=== PATIENT | female | born 1990 | race African-American/Black ===

== ENCOUNTER 2016-10-30 13:20 | Emergency (ER) | payer OTHER, MEDICAID ==
[2016-10-30 13:26] VITALS: BP 131/62
[2016-10-30] MEDS ORDERED: ACETAMINOPHEN 325 MG TABLET PO ONE (13:35)
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
[2016-10-30] MEDS ORDERED: OXYCODONE-ACETAMINOPHEN 5-325 MG TABLET PO ONE (15:19)
== END 2016-10-30 15:30 | disposition home or self-care (01) ==
LOC: ER 13:20
DX: M25.572 Pain in left ankle and joints of left foot (principal); R03.0 Elevated blood-pressure reading, without diagnosis of hypertension; M54.2 Cervicalgia; M54.5 Low back pain; V89.2XXA Person injured in unspecified motor-vehicle accident, traffic, initial encounter
CPT/HCPCS: 72040; 72110; 99283

== ENCOUNTER 2016-12-02 20:11 | Emergency (ER) | payer MEDICAID, OTHER ==
[2016-12-02 20:27] VITALS: BP 143/74
--- NOTE | 2016-12-02 20:37 | ER Document Report ---
ED Medical Screen (RME) - General Chief Complaint: Chest Pain Stated Complaint: CHEST PAIN Notes: This 25-year-old female patient comes emergency room complaining of left-sided chest pain with shortness of breath for 3 days. It hurts to breathe, hurts to turn and twist and lift or use the left arm. There is no history of ear strain. She has 2 children with her, a 7-6-qxed-old, and a 4-month-old. Brief exam shows the left anterior chest wall and pectoralis muscles are quite tender to palpate reproducing the chief complaint. I have greeted and performed a rapid initial assessment of this patient. A comprehensive ED assessment and evaluation of the patient, analysis of test results and completion of the medical decision making process will be conducted by additional ED providers. TRAVEL OUTSIDE OF THE [place] IN LAST 30 DAYS: No - Related Data Allergies/Adverse Reactions: peanut Allergy (Severe, Verified 10/30/16 13:30) Anaphylaxis Past Medical History Pulmonary Medical History: Reports: Hx Asthma Neurological Medical History: Reports: Hx Migraine Renal/ Medical History: Denies: Hx Peritoneal Dialysis - Immunizations Hx Diphtheria, Pertussis, Tetanus Vaccination: Yes Physical Exam - Vital signs Vitals: Temp Pulse Resp BP Pulse Ox 98.9 F 101 H 22 H 143/74 H 99 12/02/16 20:23 12/02/16 20:23 12/02/16 20:23 12/02/16 20:23 12/02/16 20:23 Course - Vital Signs Vital signs: Temp Pulse Resp BP Pulse Ox 98.9 F 101 H 22 H 143/74 H 99 12/02/16 20:23 12/02/16 20:23 12/02/16 20:23 12/02/16 20:23 12/02/16 20:23
--- NOTE | 2016-12-03 07:36 | EKG REPORT ---
SEVERITY:- NORMAL ECG - SINUS RHYTHM : Confirmed by: Chandrakant Pham MD 03-Dec-2016 07:35:15
== END 2016-12-03 05:49 | disposition left against medical advice (07) ==
LOC: ER 20:11
DX: Z53.9 Procedure and treatment not carried out, unspecified reason (principal); R07.9 Chest pain, unspecified; R06.02 Shortness of breath
CPT/HCPCS: 93005; 93010; 99281

== ENCOUNTER 2018-01-11 09:57 | Emergency (ER) | payer MEDICAID, OTHER ==
[2018-01-11] MEDS ORDERED: PENICILLIN V POTASSIUM 500 MG TABLET PO ONE (10:52)
[2018-01-11] MEDS ORDERED: LIDOCAINE 2% VISCOUS SOLN 20 ML UDCUP PO ONE (10:52)
--- NOTE | 2018-01-11 10:59 | ER Document Report ---
ED Oral Problem - General Chief Complaint: Jaw Pain Stated Complaint: MOUTH PAIN Time Seen by Provider: 01/11/18 10:26 Mode of Arrival: Ambulatory Information source: Patient Notes: 27-year-old female presents to ED for left-sided dental pain left lower wisdom tooth #17 with redness around the tooth. She states his been hurting for about a month but she has not been able to get into the doctor. She states she was been able to control it with her [id number] medicines but now it is not helping anymore. TRAVEL OUTSIDE OF THE [place] IN LAST 30 DAYS: No - HPI Patient complains to provider of: Toothache Onset: Other Onset: Gradual - Month Quality of pain: Achy, Sharp, Throbbing Severity: Severe Pain Level: 5 Associated symptoms: Toothache Worsened by: Cold Similar symptoms previously: Yes Recently seen / treated by doctor/dentist: No - Related Data Allergies/Adverse Reactions: peanut Allergy (Severe, Verified 10/30/16 13:30) Anaphylaxis Past Medical History - General Information source: Patient - Social History Smoking Status: Former Smoker Cigarette use (# per day): No Chew tobacco use (# tins/day): No Smoking Education Provided: No Frequency of alcohol use: Social Drug Abuse: None Occupation: customer service professional Lives with: Alone - Along with her children Family History: None Patient has suicidal ideation: No Patient has homicidal ideation: No - Past Medical History Cardiac Medical History: Reports: None Pulmonary Medical History: Reports: Hx Asthma EENT Medical History: Reports: None Neurological Medical History: Reports: Hx Migraine Renal/ Medical History: Reports: None Malignancy Medical History: Reports: None GI Medical History: Reports: None Musculoskeltal Medical History: Reports None Skin Medical History: Reports None Psychiatric Medical History: Reports: None Traumatic Medical History: Reports: None Infectious Medical History: Reports: None Surgical Hx: Negative Past Surgical History: Reports: None - Immunizations Immunizations up to date: Yes Hx Diphtheria, Pertussis, Tetanus Vaccination: Yes Review of Systems - Review of Systems Constitutional: No symptoms reported EENT: No symptoms reported, Dental problem Cardiovascular: No symptoms reported Respiratory: No symptoms reported Gastrointestinal: No symptoms reported Genitourinary: No symptoms reported Female Genitourinary: No symptoms reported Musculoskeletal: No symptoms reported Skin: No symptoms reported Hematologic/Lymphatic: No symptoms reported Neurological/Psychological: No symptoms reported -: Yes All other systems reviewed and negative Physical Exam - Vital signs Vitals: Temp Pulse Resp BP Pulse Ox 98.4 F 56 L 18 126/79 H 100 01/11/18 10:04 01/11/18 10:04 01/11/18 10:04 01/11/18 10:04 01/11/18 10:04 Interpretation: Normal - General General appearance: Appears well, Alert - HEENT Head: Normocephalic, Atraumatic Eyes: Normal Pupils: PERRL Ears: Normal External canal: Normal Tympanic membrane: Normal Nasal: Normal Mouth/Lips: Caries Mucous membranes: Normal Teeth diagram: 1 - Large cavity with gingivitis around the tooth mild swelling no actual abscess noted Pharynx: Normal Neck: Normal - Respiratory Respiratory status: No respiratory distress Chest status: Nontender Breath sounds: Normal Chest palpation: Normal - Cardiovascular Rhythm: Regular Heart sounds: Normal auscultation Murmur: No - Abdominal Inspection: Normal Distension: No distension Bowel sounds: Normal Tenderness: Nontender Organomegaly: No organomegaly - Back Back: Normal, Nontender - Extremities General upper extremity: Normal inspection, Nontender, Normal color, Normal ROM , Normal temperature General lower extremity: Normal inspection, Nontender, Normal color, Normal ROM , Normal temperature, Normal weight bearing. No: Norberto's sign - Neurological Neuro grossly intact: Yes Cognition: Normal Orientation: AAOx4 [place] Coma Scale Eye Opening: Spontaneous [place] Coma Scale Verbal: Oriented [place] Coma Scale Motor: Obeys Commands [place] Coma Scale Total: 15 Speech: Normal Motor strength normal: LUE, RUE, LLE, RLE Sensory: Normal - Psychological Associated symptoms: Normal affect, Normal mood - Skin Skin Temperature: Warm Skin Moisture: Dry Skin Color: Normal Course - Re-evaluation Re-evalutation: 01/11/18 10:56 After performing a Medical Screening Examination, I estimate there is LOW risk for a DEEP SPACE INFECTION (e.g., MURIEL'S ANGINA OR RETROPHARYNGEAL ABSCESS), MENINGITIS, INTRACRANIAL HEMORRHAGE, or AIRWAY COMPROMISE, thus I consider the discharge disposition reasonable. Also, there is no evidence or peritonitis, sepsis, or toxicity. I have reevaluated this patient multiple times and no significant life threatening changes are noted. The patient and I have discussed the diagnosis and risks, and we agree with discharging home with close follow-up with the understanding that symptoms and presentations can change. We also discussed returning to the Emergency Department immediately if new or worsening symptoms occur. We have discussed the symptoms which are most concerning (e.g., changing or worsening pain, trouble swallowing or breathing, neck stiffness or fever) that necessitate immediate return. - Vital Signs Vital signs: Temp Pulse Resp BP Pulse Ox 98.9 F 78 18 130/78 H 100 01/11/18 11:07 01/11/18 11:07 01/11/18 11:07 01/11/18 11:07 01/11/18 11:07 Discharge - Discharge Clinical Impression: Pain due to dental caries HTN (hypertension) Qualifiers: Hypertension type: unspecified Qualified Code(s): I10 - Essential (primary) hypertension Condition: Stable Disposition: HOME, SELF-CARE Additional Instructions: TOOTHACHE: Your pain is due to dental decay. The tooth must be repaired in order for you to feel better. You will, therefore, be referred to a dentist. We do not have dentists on the staff at [facility]. Severe swelling or drainage around a tooth usually means a dental abscess. This also requires evaluation and treatment by the dentist, but antibiotics may be prescribed while awaiting dental treatment. You should be rechecked immediately if you develop major swelling of the face, increasing pain, a lump in the jaw or gums, headache, difficulty swallowing, or fever. PENICILLIN V K: You have been given a prescription for Penicillin VK. Your physician has determined that this is the best antibiotic for your condition. Pen VK can be taken with meals, however more of the antibiotic gets into the bloodstream if it's taken on an empty stomach. Penicillin usually has no side effects. However, allergy to penicillins is common. If you have had an allergic reaction to any drug of the penicillin family, you should never take any other penicillin. Notify your doctor at once if you develop hives, itching, swelling, faintness, or shortness of breath. Salt and soda solution 1 quart of water 1 tablespoon of salt 1 teaspoon of baking soda Mixed 3 ingredients together and boil for 1 minute Placed in a covered quart jar Use 1/2 ounce of cold solution to gargle 3 times a day The viscous lidocaine you have been given in the syringe can be used every 1-2 hours. Put a small amount on your finger and rub into the tooth and the surrounding gums every 1-2 hours for pain. Be aware that this can numb your tongue. FOLLOW-UP CARE: You have been referred for follow-up care to the dentists listed below. Call the dentists office for an appointment as you were instructed or within the next two days. If you experience worsening or a significant change in your symptoms, notify the physician immediately or return to the Emergency Department at any time for re-evaluation. [facility] [address] [place], [place] [facility] [address] [place] [address] [facility] [address] [facility] [address] [facility] [address] [facility] [address] [email or web address] [address] [place] [address] Thursday- 8:00am to 5:00 pm Will see patients from other [facility]. Charges based on income and family size and accepts Medicare, Medicaid, and Insurances Will pull molars [facility] [id number] Hours of Operation 8:00 am - 4:30 pm weekdays The following dental offices accept Medicaid: [facility] Dr. [address] Dr. Wyatt Dr. Giles Dr. Hardy Darci Tellez [place], and [facility] oral surgery Dr. Henson ([place]) Dr. Redman ([place]) [facility] Drs. Mueller and Ernesto ([place]) Dr. Winters ([place]) [facility] Dr. Noe ([place]) Drs. Hurtado and ([place]) Medicaid Care Line Prescriptions: Penicillin V Potassium [Penicillin Vk 500 mg Tablet] 500 mg PO BID #20 tablet Forms: Elevated Blood Pressure, Return to Work Referrals: WHITLEY NORTON MD [Primary Care Provider] - Follow up as needed
[2018-01-11 11:08] VITALS: BP 130/78
== END 2018-01-11 11:05 | disposition home or self-care (01) ==
LOC: ER 09:57
DX: K02.9 Dental caries, unspecified (principal); K08.89 Other specified disorders of teeth and supporting structures; K05.10 Chronic gingivitis, plaque induced; I10 Essential (primary) hypertension; J45.909 Unspecified asthma, uncomplicated; Z87.892 Personal history of anaphylaxis; Z91.010 Allergy to peanuts
CPT/HCPCS: 99282; J3490 ×2

== ENCOUNTER 2018-01-28 12:11 | Emergency (ER) | payer MEDICAID ==
[2018-01-28] MEDS ORDERED: ACETAMINOPHEN 325 MG TABLET PO ONE (12:44)
--- NOTE | 2018-01-28 12:45 | ER Document Report ---
ED Extremity Problem, Lower - General Chief Complaint: Ankle Injury Stated Complaint: RIGHT ANKLE PAIN Time Seen by Provider: 01/28/18 12:37 Mode of Arrival: Wheelchair Information source: Patient Notes: 27-year-old female presented ED for complaint of right ankle pain this started today when she stepped in a hole. When she started to pull her put out is started hurting and that she tried to walk on it and the pain increased. States she took 1600 mg of ibuprofen this morning and it does not help. Regular and unlabored pupils equal and react to light and the patient is able to speak in full sentences. Patient states it does hurt to put weight on this ankle. TRAVEL OUTSIDE OF THE [place] IN LAST 30 DAYS: No - HPI Patient complains to provider of: Injury, Pain Location: Ankle Occurred: This morning Where: Home, Outdoors Onset/Duration: Sudden Quality of pain: Achy, Sharp, Throbbing Severity: Moderate Pain Level: 3 Context: Twisted Recent injury: Possibly Associated symptoms: Painful ambulation Exacerbated by: Hanging down, Movement, Walking Relieved by: Elevation, Ice, Rest - Related Data Allergies/Adverse Reactions: peanut Allergy (Severe, Verified 01/28/18 12:12) Anaphylaxis Past Medical History - General Information source: Patient - Social History Smoking Status: Never Smoker Cigarette use (# per day): No Chew tobacco use (# tins/day): No Smoking Education Provided: No Frequency of alcohol use: Social Drug Abuse: None Occupation: In the [employer] [place] Lives with: Alone - With her children Family History: None Patient has suicidal ideation: No Patient has homicidal ideation: No - Past Medical History Cardiac Medical History: Reports: None Pulmonary Medical History: Reports: Hx Asthma EENT Medical History: Reports: None Neurological Medical History: Reports: Hx Migraine Endocrine Medical History: Reports: None Renal/ Medical History: Reports: None Malignancy Medical History: Reports: None GI Medical History: Reports: None Musculoskeltal Medical History: Reports Hx Musculoskeletal Trauma Skin Medical History: Reports None Psychiatric Medical History: Reports: None Traumatic Medical History: Reports: Hx Fractures - Both ankles Infectious Medical History: Reports: None Surgical Hx: Negative Past Surgical History: Reports: None - Immunizations Immunizations up to date: Yes Hx Diphtheria, Pertussis, Tetanus Vaccination: Yes Review of Systems - Review of Systems Constitutional: No symptoms reported EENT: No symptoms reported Cardiovascular: No symptoms reported Respiratory: No symptoms reported Gastrointestinal: No symptoms reported Genitourinary: No symptoms reported Female Genitourinary: No symptoms reported Musculoskeletal: Other - Right ankle pain with slight swelling Skin: No symptoms reported Hematologic/Lymphatic: No symptoms reported Neurological/Psychological: No symptoms reported -: Yes All other systems reviewed and negative Physical Exam - Vital signs Vitals: Temp Pulse Resp BP Pulse Ox 98.8 F 83 16 132/78 H 99 01/28/18 12:14 01/28/18 12:14 01/28/18 12:14 01/28/18 12:14 01/28/18 12:14 Interpretation: Normal - General General appearance: Appears well, Alert - HEENT Head: Normocephalic, Atraumatic Eyes: Normal Pupils: PERRL - Respiratory Respiratory status: No respiratory distress Chest status: Nontender Breath sounds: Normal Chest palpation: Normal - Cardiovascular Rhythm: Regular Heart sounds: Normal auscultation Murmur: No - Abdominal Inspection: Normal Distension: No distension Bowel sounds: Normal Tenderness: Nontender Organomegaly: No organomegaly - Back Back: Normal, Nontender - Extremities General upper extremity: Normal inspection, Nontender, Normal color, Normal ROM , Normal temperature General lower extremity: Normal color, Normal temperature. No: Norberto's sign Ankle: Tender, Ecchymosis - Minimal, Edema, Limited ROM - Due to pain. No: Abrasion, Deformity - minimal, Instability, Laceration, Positive Delgado's test, Unable to bear weight Foot: Normal, Nontender - Neurological Neuro grossly intact: Yes Cognition: Normal Orientation: AAOx4 Butler Coma Scale Eye Opening: Spontaneous Butler Coma Scale Verbal: Oriented Hany Coma Scale Motor: Obeys Commands Hany Coma Scale Total: 15 Speech: Normal Motor strength normal: LUE, RUE, LLE, RLE Sensory: Normal - Psychological Associated symptoms: Normal affect, Normal mood - Skin Skin Temperature: Warm Skin Moisture: Dry Skin Color: Normal Course - Re-evaluation Re-evalutation: 01/28/18 15:10 X-rays discussed with patient and written report given to patient. Patient was treated with Terrance wrap and stirrup splint and crutches. Patient was instructed to use elevation ice and ibuprofen for the pain. Patient to follow-up with orthopedics. The patient is nontoxic appearing with stable vitals. They are afebrile. Ankle exam shows no deformities with no obvious ligament instability. There is a normal pulse and sensation distally. There is no redness or signs of infection. X-rays show no acute fracture per the radiologist. Patient will be placed in an Terrance wrap for comfort. Crutches will be offered and given if requested. Patient will be instructed to follow-up with not better in 1 week, sooner for increasing pain, fever, redness, numbness , tingling, weakness, any further concerns. Patient will be instructed to rest , ice, elevate their ankle. - Vital Signs Vital signs: Temp Pulse Resp BP Pulse Ox 98.2 F 76 18 126/76 H 100 01/28/18 14:21 01/28/18 14:21 01/28/18 14:21 01/28/18 14:21 01/28/18 14:21 - Diagnostic Test Radiology reviewed: Image reviewed, Reports reviewed Procedures - Immobilization Right Ankle Time completed: 14:20 Immobilizer type: Terrance wrap, Ankle stirrup, Crutches Performed by: PCT Post-Proc Neuro Vasc Exam: Normal Alignment checked and good: Yes Discharge - Discharge Clinical Impression: Right ankle sprain Qualifiers: Encounter type: initial encounter Involved ligament of ankle: unspecified ligament Qualified Code(s): S93.401A - Sprain of unspecified ligament of right ankle, initial encounter Condition: Stable Disposition: HOME, SELF-CARE Instructions: Ankle Exercise Program ([facility]) Additional Instructions: SPRAINED ANKLE: Your sprained ankle results from stretching or tearing of the ligaments which support the ankle. This usually results from twisting the foot inward and under. The ligaments will require time and protection in order to heal properly. Many ankle sprains are quite disabling, and should be taken seriously. The usual treatment for an ankle sprain is cold packs; protection with tape , splints, or wraps; elevation; and staying off the ankle for at least a day. As the ankle improves, you can walk IF it's not painful to bear weight. Sports are best postponed until healing is complete. More serious sprains usually require strengthening exercises after early healing. Your physician has assessed the seriousness of the ligament injury to your ankle. However, the treatment may change, depending on how your ankle progresses. If further exams were recommended, it is important that you follow through. Call the doctor if your foot becomes numb, painful, or severely swollen. TERRANCE WRAP: A compression dressing (terrance wrap) has been placed. This helps hold the area still. It limits swelling and internal bleeding. The wrap should be comfortably snug -- not tight. You should feel a sense of pressure, but not severe pain under the wrap. Unless the physician tells you otherwise, you can adjust the wrap for comfort. If the wrap causes symptoms suggesting it's too tight -- uncomfortable pressure, swelling or discoloration beyond the wrap, numbness, or severe pain - - you must loosen the wrap. If these symptoms don't resolve promptly, return for re-evaluation. ANKLE STIRRUP SPLINT: You are to use an ankle brace called a stirrup splint. This type of brace allows you to place greater stresses on the ankle without risk of re-injury, and is often used for more severe ankle injuries such as avulsion fractures and ligament ruptures. The splint can be worn over a sock or tape. For proper support, wear the splint with a shoe over it. It's important that the splint fit properly. Adjust the heel tension, if needed. If your splint has air bladders, peel back the bottom of each air bladder, then move the Velcro attachment of the heel strap up or down. Air bladder pressure can be adjusted by pulling up the valve at the top, threading the air tube down into the main bladder, then blowing air into the bladder or squeezing it out. The two sides of the stirrup can be moved forward or back on your ankle by changing the attachment of the main straps. If you are unable to use the ankle comfortably in the splint, return for re -evaluation. USE OF CRUTCHES: The doctor has recommended that you not bear weight at this time. You will need to use crutches. Adjust the crutches so the tops come to about two inches under the armpit while you are standing upright. Use your hands -- not your armpits -- to support your weight. To get into a chair, support yourself with one crutch on the injured side. Hold the chair with the other hand, then lower yourself while putting all your weight on the good leg. Going up stairs is `good leg up, step up, then bring up crutches and bad leg.' Down stairs is `bad leg and crutches down, then bring good leg down.' If you develop numbness or swelling in an arm or hand, you are using the crutches incorrectly. Return if you are having any problems with the crutches. ICE & ELEVATION: Apply ice packs frequently against the painful area. Many different schedules are recommended, such as "20 minutes on, 20 minutes off" or "one hour ice, two hours rest." If you need to work, you may need to go longer between ice treatments. You should plan to have the area ice packed AT LEAST one- fourth of the time. The ice should be applied over the wrap, tape, or splint, or over a layer of cloth -- not directly against the skin. Some ice bags have a built-in cloth and can be put directly on the skin. Your injured part should be elevated as much as possible over the next 48 hours. Try to keep the injury above the level of the heart. Avoid use of the injured area. Elevation and rest will decrease the swelling. USE OF [id number] IBUPROFEN: Ibuprofen (Advil, Nuprin, Medipren, Motrin IB) is a medication for fever and pain control. In addition, it has anti- inflammatory effects which may be beneficial, especially in the treatment of injuries. It's best to take ibuprofen with food. Persons with ulcer disease or allergy to aspirin should notify their physician of this before taking ibuprofen. Ibuprofen can be given every four to six hours, for a total of four doses daily. Age Pain or fever dose Antiinflammatory dose 6-8 yr 200 mg (1 tab) 200 mg (1 tab) 9-11 yr 200 mg (1 tab) 200-400 mg (1-2 tab) 11-14 yr 200-400 mg (1-2 tab) 400 mg (2 tab) 15-adult 400 mg (2 tab) 600 mg (3 tab) Exercises for the Foot Muscles Stretching and strengthening of the foot muscles is an important part of recovery from injury, as well as in treatment and prevention of overuse syndromes like plantar fasciitis. TOWEL CURLS: Put your foot on a dry towel. Curl your toes to pick it up, then drop it. As it becomes easier, use a heavier towel. Repeat 20 times, twice daily. QUINTEROS CURLS: Lift and turn your knee, so your foot is against the opposite leg about mid-quinteros. Try to "grab" the entire quinteros bone with your toes, while moving your foot up and down the leg for one minute. Repeat twice daily. TOE LIFTS: Put your opposite foot over your 2nd to 5th toes. Now lift the toes up, pushing the other foot upward. Repeat 10 times, twice daily. Repeat using the large toe. EVERSIONS: Cross the opposite foot over, placing the heel just behind the 4th and 5th toes. Try to lift up the outside of the bottom foot. Hold 10 seconds. Repeat twice daily. FOLLOW-UP CARE: If you have been referred to a physician for follow-up care, call the physician s office for an appointment as you were instructed or within the next two days. If you experience worsening or a significant change in your symptoms, notify the physician immediately or return to the Emergency Department at any time for re-evaluation. Forms: Elevated Blood Pressure, Return to Work Referrals: WHITLEY NORTON MD [Primary Care Provider] - Follow up as needed PRACHI HERRON MD [ACTIVE STAFF] - Follow up as needed
--- NOTE | 2018-01-28 13:41 | RADIOLOGY REPORT (SQ) ---
EXAM DESCRIPTION: ANKLE RIGHT COMPLETE COMPLETED DATE/TIME: 01/28/2018 1:08 pm REASON FOR STUDY: Pain and injury after stepping in a hole COMPARISON: None. NUMBER OF VIEWS: Three views. TECHNIQUE: AP, lateral, and oblique radiographic images acquired of the right ankle. LIMITATIONS: None. FINDINGS: MINERALIZATION: Normal. BONES: No acute fracture or dislocation. No worrisome bone lesions. JOINTS: No effusions. SOFT TISSUES: No soft tissue swelling. No foreign body. OTHER: No other significant finding. IMPRESSION: NEGATIVE STUDY OF THE RIGHT ANKLE. NO RADIOGRAPHIC EVIDENCE OF ACUTE INJURY. TECHNICAL DOCUMENTATION: JOB ID: [id number] [employer]- All Rights Reserved Reading location - IP/workstation name: [email or web address]
[2018-01-28 14:24] VITALS: BP 126/76
== END 2018-01-28 14:24 | disposition home or self-care (01) ==
LOC: ER 12:11
PROC: 2W3QX1Z Immobilization of Right Lower Leg using Splint (ICD-10-PCS; principal; 2018-01-28)
DX: S93.401A Sprain of unspecified ligament of right ankle, initial encounter (principal); M25.571 Pain in right ankle and joints of right foot; W17.2XXA Fall into hole, initial encounter; J45.909 Unspecified asthma, uncomplicated
CPT/HCPCS: 99283; 73610; 29515; L1902; J3490

== ENCOUNTER 2018-03-29 14:29 | Emergency (ER) | payer MEDICAID ==
[2018-03-29] MEDS ORDERED: KETOROLAC TROMETHAMINE 60 MG/2 ML SDV IM ONE (15:15)
[2018-03-29] MEDS ORDERED: CYCLOBENZAPRINE HCL 10 MG TABLET PO ONE (15:15)
--- NOTE | 2018-03-29 15:15 | ER Document Report ---
ED Medical Screen (RME) - General Chief Complaint: Back Pain Stated Complaint: VOMITING Time Seen by Provider: 03/29/18 15:14 Mode of Arrival: Ambulatory Information source: Patient Notes: Patient presents emergency department with complaints of entire back pain after she vomited once this morning. She reports she is not nauseated today. Denies trauma. Denies fever diarrhea. Took Motrin 800 mg at 11:00 this morning. Patient reports there is no way she is . I have greeted and performed a rapid initial assessment of this patient. A comprehensive ED assessment and evaluation of the patient, analysis of test results and completion of the medical decision making process will be conducted by additional ED providers. TRAVEL OUTSIDE OF THE [place] IN LAST 30 DAYS: No - Related Data Allergies/Adverse Reactions: peanut Allergy (Severe, Verified 03/29/18 14:30) Anaphylaxis Past Medical History Pulmonary Medical History: Reports: Hx Asthma Neurological Medical History: Reports: Hx Migraine Renal/ Medical History: Denies: Hx Peritoneal Dialysis Musculoskeltal Medical History: Reports Hx Musculoskeletal Trauma Traumatic Medical History: Reports: Hx Fractures - Both ankles - Immunizations Immunizations up to date: Yes Hx Diphtheria, Pertussis, Tetanus Vaccination: Yes Physical Exam - Vital signs Vitals: Temp Pulse Resp BP Pulse Ox 98.7 F 64 16 134/67 H 100 03/29/18 14:49 03/29/18 14:49 03/29/18 14:49 03/29/18 14:49 03/29/18 14:49 Course - Vital Signs Vital signs: Temp Pulse Resp BP Pulse Ox 98.7 F 64 16 134/67 H 100 03/29/18 14:49 03/29/18 14:49 03/29/18 14:49 03/29/18 14:49 03/29/18 14:49 Doctor's Discharge - Discharge Referrals: WHITLEY NORTON MD [Primary Care Provider] - Follow up as needed
--- NOTE | 2018-03-29 15:29 | ER Document Report ---
HPI - HPI Patient complains to provider of: right upper back st[place] Onset: This morning Quality of pain: Achy Pain Level: 5 Context: 27 yo female c/o right upper back pain after vomiting twice this morning. Worse with movement. No abdominal pain, fever, or diarrhea. Exacerbated by: Movement Relieved by: Denies - ROS ROS below otherwise negative: Yes Systems Reviewed and Negative: Yes All other systems reviewed and negative - REPRODUCTIVE Reproductive: DENIES: : - DERM Skin Color: Normal Past Medical History - General Information source: Patient - Social History Smoking Status: Never Smoker Chew tobacco use (# tins/day): No Frequency of alcohol use: None Drug Abuse: None Family History: None Patient has suicidal ideation: No Patient has homicidal ideation: No Pulmonary Medical History: Reports: Hx Asthma Neurological Medical History: Reports: Hx Migraine Renal/ Medical History: Denies: Hx Peritoneal Dialysis Musculoskeletal Medical History: Reports Hx Musculoskeletal Trauma Traumatic Medical History: Reports: Hx Fractures - Both ankles - Immunizations Immunizations up to date: Yes Hx Diphtheria, Pertussis, Tetanus Vaccination: Yes Vertical Provider Document - CONSTITUTIONAL Agree With Documented VS: Yes Exam Limitations: No Limitations General Appearance: No Apparent Distress - INFECTION CONTROL TRAVEL OUTSIDE OF THE [place] IN LAST 30 DAYS: No - HEENT HEENT: Normocephalic - NECK Neck: Supple - RESPIRATORY Respiratory: Breath Sounds Normal, No Respiratory Distress Notes: tender right trapezius muscle. - CARDIOVASCULAR Cardiovascular: Regular Rate, Regular Rhythm - BACK Back: Normal Inspection Notes: see above - MUSCULOSKELETAL/EXTREMETIES Musculoskeletal/Extremeties: MAEW, FROM, Tender - see above - NEURO Level of Consciousness: Alert - DERM Integumentary: No Rash Course - Vital Signs Vital signs: Temp Pulse Resp BP Pulse Ox 98.7 F 64 16 134/67 H 100 03/29/18 14:49 03/29/18 14:49 03/29/18 14:49 03/29/18 14:49 03/29/18 14:49 Discharge - Discharge Clinical Impression: Right trapezius muscle strain Condition: Good Disposition: HOME, SELF-CARE Instructions: Acetaminophen, Ibuprofen (General) ([facility]), Muscle Relaxers ([facility]), Muscle Strain ([facility]), Warm Packs ([facility]) Additional Instructions: Warm compress to your back Tylenol up to 4000 mg a day You can also take your Motrin 803 times a day with food Return to the emergency room for any worsening symptoms Prescriptions: Cyclobenzaprine HCl [Flexeril 10 Mg Tablet] 10 mg PO TIDP PRN #20 tablet PRN Reason: Forms: Return to Work Referrals: WHITLEY NORTON MD [Primary Care Provider] - Follow up as needed
[2018-03-29] MEDS ORDERED: ACETAMINOPHEN 325 MG TABLET PO ONE (16:00)
[2018-03-29 16:15] VITALS: BP 120/75
== END 2018-03-29 16:13 | disposition home or self-care (01) ==
LOC: ER 14:29
DX: S46.811A Strain of other muscles, fascia and tendons at shoulder and upper arm level, right arm, initial encounter (principal); M54.6 Pain in thoracic spine; X58.XXXA Exposure to other specified factors, initial encounter
CPT/HCPCS: 99283; 96372; J3490 ×2; J1885

== ENCOUNTER 2018-07-05 22:55 | Emergency (ER) | payer MEDICAID ==
[2018-07-06] MEDS ORDERED: NORMAL SALINE 1000 ML 1,000 ML IV ONE (00:10)
[2018-07-06] MEDS ORDERED: ONDANSETRON HCL INJ/PF 4 MG/2 ML SDV IV ONE (00:10)
--- NOTE | 2018-07-06 00:11 | ER Document Report ---
ED Medical Screen (RME) - General Chief Complaint: Abdominal Pain Stated Complaint: ABDOMINAL PAIN Time Seen by Provider: 07/06/18 00:06 Notes: 27-year-old female, chief complaint of upper and lower abdominal pain, multiple vomiting episodes for the past few days. States she had a stomach virus last week but this resolved. Denies fever. Unsure of . No abdominal surgeries. TRAVEL OUTSIDE OF THE [place] IN LAST 30 DAYS: No - Related Data Allergies/Adverse Reactions: peanut Allergy (Severe, Verified 03/29/18 14:30) Anaphylaxis Past Medical History Pulmonary Medical History: Reports: Hx Asthma Neurological Medical History: Reports: Hx Migraine Renal/ Medical History: Denies: Hx Peritoneal Dialysis Musculoskeltal Medical History: Reports Hx Musculoskeletal Trauma Traumatic Medical History: Reports: Hx Fractures - Both ankles - Immunizations Immunizations up to date: Yes Hx Diphtheria, Pertussis, Tetanus Vaccination: Yes Physical Exam - Vital signs Vitals: Temp Pulse Resp BP Pulse Ox 98.5 F 67 24 H 131/63 H 98 07/05/18 23:01 07/05/18 23:01 07/05/18 23:01 07/05/18 23:01 07/05/18 23:01 - General General appearance: Appears well In distress: None - Abdominal Tenderness: Tender - Generalized upper and lower abdominal tenderness, exam limited by sitting position Course - Vital Signs Vital signs: Temp Pulse Resp BP Pulse Ox 98.5 F 67 24 H 131/63 H 98 07/05/18 23:01 07/05/18 23:01 07/05/18 23:01 07/05/18 23:01 07/05/18 23:01 Doctor's Discharge - Discharge Referrals: WHITLEY NORTON MD [Primary Care Provider] - Follow up as needed
[2018-07-06 01:15] LABS: ABSOLUTE LYMPHOCYTES (AUTO) 1.4 10^3/uL (0.5-4.7); ABSOLUTE MONOCYTES (AUTO) 0.3 10^3/uL (0.1-1.4); ABSOLUTE NEUT (AUTO) 3.3 10^3/uL (1.7-8.2); BASOPHILS % (AUTO) 0.3 % (0-2); EOSINOPHILS % (AUTO) 0.5 % (0-6); HEMATOCRIT 36.9 % (36.0-47.0); HEMOGLOBIN 12.3 g/dL (12.0-15.5); LYMPHOCYTES % (AUTO) 27.2 % (13-45); MEAN CORPUSCULAR HEMOGLOBIN 28.1 pg (27.0-33.4); MEAN CORPUSCULAR HGB CONC 33.3 g/dL (32.0-36.0); MEAN CORPUSCULAR VOLUME 85 fl (80-97); MONOCYTES % (AUTO) 6.6 % (3-13); PLATELET COUNT 409 10^3/uL (150-450); RED BLOOD COUNT 4.37 10^6/uL (3.72-5.28); RED CELL DISTRIBUTION WIDTH 13.6 % (11.5-14.0); SEGMENTED NEUTROPHILS % (AUTO) 65.4 % (42-78); TOTAL CELLS COUNTED % (AUTO) 100 %; WHITE BLOOD COUNT 5.1 10^3/uL (4.0-10.5)
--- NOTE | 2018-07-06 01:18 | ER Document Report ---
ED General - General Chief Complaint: Abdominal Pain Stated Complaint: ABDOMINAL PAIN Time Seen by Provider: 07/06/18 00:06 Notes: Patient is a 27-year-old female who presents to the emergency department with upper and lower abdominal pain. She has been vomiting and states that she has never had this pain before. Her pain is primarily in her left upper quadrant. She stated that she had a viral infection from her children 2 weeks ago, but she continues to have vomiting. Last menstrual cycle was 2 weeks ago. She states she is also been having diarrhea. She has not taking anything to help with her symptoms. TRAVEL OUTSIDE OF THE [place] IN LAST 30 DAYS: No - Related Data Allergies/Adverse Reactions: peanut Allergy (Severe, Verified 03/29/18 14:30) Anaphylaxis Past Medical History - General Information source: Patient - Social History Smoking Status: Never Smoker Chew tobacco use (# tins/day): No Frequency of alcohol use: Rare Drug Abuse: None Family History: None Patient has suicidal ideation: No Patient has homicidal ideation: No Pulmonary Medical History: Reports: Hx Asthma Neurological Medical History: Reports: Hx Migraine Renal/ Medical History: Denies: Hx Peritoneal Dialysis Musculoskeletal Medical History: Reports Hx Musculoskeletal Trauma Traumatic Medical History: Reports: Hx Fractures - Both ankles - Immunizations Immunizations up to date: Yes Hx Diphtheria, Pertussis, Tetanus Vaccination: Yes Review of Systems - Review of Systems Notes: REVIEW OF SYSTEMS: CONSTITUTIONAL : Denies recent illness. Denies recent unintentional weight loss. Denies fever, chills, or sweats. EENT: Denies eye, ear, throat, or mouth pain, discharge, or symptoms. Denies nasal or sinus congestion. CARDIOVASCULAR: Denies chest pain. RESPIRATORY: Denies shortness of breath, cough, congestion, difficulty breathing , or wheezing. GASTROINTESTINAL: See HPI GENITOURINARY: Denies difficulty urinating, burning, blood in urine, urgency or frequency. MUSCULOSKELETAL: Denies neck and back pain. Denies joint pain or swelling. SKIN: Denies rash, itchiness, or lesions HEMATOLOGIC : Denies easy bruising or bleeding. LYMPHATIC: Denies swollen, painful, enlarged glands. NEUROLOGICAL: Denies no numbness or tingling denies weakness. Denies headache. Denies altered mental status. Denies alteration in speech. PSYCHIATRIC: Denies stress, anxiety, alteration in sleep patterns, or depression. All other systems reviewed and negative. Physical Exam - Vital signs Vitals: Temp Pulse Resp BP Pulse Ox 98.5 F 67 24 H 131/63 H 98 07/05/18 23:01 07/05/18 23:01 07/05/18 23:01 07/05/18 23:01 07/05/18 23:01 - Notes Notes: PHYSICAL EXAMINATION: GENERAL: Appears well, healthy, well-nourished, no acute distress. HEAD: Normocephalic, atraumatic. EYES: PERRL, conjunctiva normal, all extraocular movements intact, sclera nonicteric ENT: Moist mucous membranes. NECK: Supple, no noticeable swelling, redness, rash. Normal range of motion. LUNGS: Equal breath sounds bilaterally and clear to auscultation. No wheezes rales or rhonchi. CARDIOVASCULAR: S1-S2, regular rate, regular rhythm. Radial pulses 2+, normal. ABDOMEN: Normoactive bowel sounds. Soft, tender left upper quadrant, no guarding, no rebound tenderness, and no masses palpated. EXTREMITIES: Normal strength and range of motion, no pitting or edema. No cyanosis. NEUROLOGICAL: Moves all extremities upon command. Strength 5/5 in all extremities. PSYCH: Normal mood, normal affect. SKIN: Warm, dry. No rash, lesions, ulcerations noted. Normal skin turgor. Course - Re-evaluation Re-evalutation: 07/06/18 02:29 Patient's laboratory studies are unremarkable at this time. her left upper quadrant abdominal pain is most likely due to gastritis. She has been vomiting for the past 2 weeks due to a viral infection. I do not suspect she has a perforated bowel, perforated gastric ulcer, ACS, pneumonia, or any other life- threatening etiologies at this time. I have ordered Carafate, Pepcid, and Tylenol to help leave her pain and treat her symptoms. Discussed laboratory studies with the patient. Discharge instructions were given. She verbalizes understanding. - Vital Signs Vital signs: Temp Pulse Resp BP Pulse Ox 98.5 F 67 24 H 131/63 H 98 07/05/18 23:01 07/05/18 23:01 07/05/18 23:01 07/05/18 23:01 07/05/18 23:01 - Laboratory Result Diagrams: 07/06/18 00:55 07/06/18 00:55 Laboratory results interpreted by me: 07/06/18 01:18 Ur Leukocyte Esterase SMALL H Discharge - Discharge Clinical Impression: Abdominal pain Qualifiers: Abdominal location: left upper quadrant Qualified Code(s): R10.12 - Left upper quadrant pain Condition: Stable Disposition: HOME, SELF-CARE Additional Instructions: You have been seen in the emergency department for abdominal pain. Most likely cause of your abdominal pain is gastritis, from vomiting multiple times. You have been prescribed Carafate, medication to help coat your stomach to help heal it. You have also been prescribed Pepcid, medication to help decrease the acid in your stomach. You have also been given zofran, nausea medication. Please take these medications as prescribed. Please see your primary care provider if you continue to have symptoms. If you vomit blood, have black tarry stools, or have any symptoms that are worrisome to you, please return to the emergency department. Prescriptions: Famotidine [Pepcid 20 mg Tablet] 20 mg PO BID #12 tablet Sucralfate [Carafate 1 gm Tablet] 1 gm PO ACHS #20 tablet Forms: Return to Work Referrals: WHITLEY NORTON MD [Primary Care Provider] - Follow up as needed
[2018-07-06 01:29] LABS: ALANINE AMINOTRANSFERASE 23 U/L (9-52); ALBUMIN 3.9 g/dL (3.5-5.0); ALKALINE PHOSPHATASE 89 U/L (38-126); ANION GAP 13 (5-19); ASPARTATE AMINO TRANSFERASE 23 U/L (14-36); BILIRUBIN,DIRECT 0.2 mg/dL (0.0-0.4); BILIRUBIN,TOTAL 0.2 mg/dL (0.2-1.3); BLOOD UREA NITROGEN 8 mg/dL (7-20); CALCIUM 9.1 mg/dL (8.4-10.2); CARBON DIOXIDE 26 mmol/L (22-30); CHLORIDE 105 mmol/L (98-107); GLUCOSE 98 mg/dL (75-110); LIPASE 158.5 U/L (23-300); SODIUM 143.7 mmol/L (137-145); TOTAL PROTEIN 7.1 g/dL (6.3-8.2)
[2018-07-06 01:56] LABS: APPEARANCE,URINE CLOUDY; BILIRUBIN,URINE NEGATIVE (NEGATIVE); COLOR,URINE YELLOW; GLUCOSE, URINE NEGATIVE (NEGATIVE); KETONES,URINE NEGATIVE (NEGATIVE); LEUKOCYTE ESTERASE,URINE SMALL (NEGATIVE); NITRITE,URINE NEGATIVE (NEGATIVE); PROTEIN,URINE NEGATIVE (NEGATIVE); UROBILINOGEN,URINE NEGATIVE mg/dL (<2.0)
[2018-07-06] MEDS ORDERED: FAMOTIDINE 20 MG TABLET PO ONE (02:10)
[2018-07-06] MEDS ORDERED: SUCRALFATE 1 GM TABLET PO ONE (02:10)
[2018-07-06] MEDS ORDERED: ACETAMINOPHEN 325 MG TABLET PO ONE (02:11)
[2018-07-06] MEDS ORDERED: ONDANSETRON ODT 4 MG TAB (6 TAB/ER DISP) PO PRN (02:11)
[2018-07-06 03:09] VITALS: BP 117/72
== END 2018-07-06 03:15 | disposition home or self-care (01) ==
LOC: ER 22:55
DX: R11.10 Vomiting, unspecified (principal); R10.10 Upper abdominal pain, unspecified; R10.30 Lower abdominal pain, unspecified; Z91.010 Allergy to peanuts
CPT/HCPCS: 99284; 96361; 96374; 36415; 83690; 85025; 81025; 80053; 81001; J3490 ×3; J2405; J7030

== ENCOUNTER 2018-07-08 18:54 | Emergency (ER) | payer MEDICAID ==
[2018-07-08] MEDS ORDERED: NORMAL SALINE 1000 ML 1,000 ML IV ONE (19:45)
[2018-07-08] MEDS ORDERED: KETOROLAC TROMETHAMINE INJ/PF 30 MG/1 ML SDV IV ONE (19:45)
[2018-07-08] MEDS ORDERED: MINERAL OIL ENEMA 133 ML PR ONE (19:45)
--- NOTE | 2018-07-08 19:46 | ER Document Report ---
ED Medical Screen (RME) - General Chief Complaint: Abdominal Pain Stated Complaint: ABDOMINAL PAIN/VOMITING Time Seen by Provider: 07/08/18 19:44 Notes: 27 [id number] female presents today again saying that none of the medicine that was given the other day was helping her. She is having nausea vomiting constipated dysuria frequency and urgency. Also having diffuse abdominal pain. Noted little blood this morning when trying to force her to have a defecation. TRAVEL OUTSIDE OF THE [place] IN LAST 30 DAYS: No - Related Data Allergies/Adverse Reactions: peanut Allergy (Severe, Verified 07/08/18 19:10) Anaphylaxis Past Medical History - Social History Chew tobacco use (# tins/day): No Frequency of alcohol use: None Drug Abuse: None Pulmonary Medical History: Reports: Hx Asthma Neurological Medical History: Reports: Hx Migraine Renal/ Medical History: Denies: Hx Peritoneal Dialysis Musculoskeltal Medical History: Reports Hx Musculoskeletal Trauma Traumatic Medical History: Reports: Hx Fractures - Both ankles - Immunizations Immunizations up to date: Yes Hx Diphtheria, Pertussis, Tetanus Vaccination: Yes Physical Exam - Vital signs Vitals: Temp Pulse Resp BP Pulse Ox 98.3 F 64 22 H 140/78 H 100 07/08/18 19:27 07/08/18 19:27 07/08/18 19:27 07/08/18 19:27 07/08/18 19:27 Course - Vital Signs Vital signs: Temp Pulse Resp BP Pulse Ox 98.3 F 64 22 H 140/78 H 100 07/08/18 19:27 07/08/18 19:27 07/08/18 19:27 07/08/18 19:27 07/08/18 19:27 Doctor's Discharge - Discharge Referrals: WHITLEY NORTON MD [Primary Care Provider] - Follow up as needed
[2018-07-08 20:20] LABS: ABSOLUTE LYMPHOCYTES (AUTO) 2.2 10^3/uL (0.5-4.7); ABSOLUTE MONOCYTES (AUTO) 0.3 10^3/uL (0.1-1.4); ABSOLUTE NEUT (AUTO) 3.7 10^3/uL (1.7-8.2); BASOPHILS % (AUTO) 0.6 % (0-2); EOSINOPHILS % (AUTO) 0.6 % (0-6); HEMATOCRIT 37.9 % (36.0-47.0); HEMOGLOBIN 12.8 g/dL (12.0-15.5); LYMPHOCYTES % (AUTO) 35.4 % (13-45); MEAN CORPUSCULAR HEMOGLOBIN 28.4 pg (27.0-33.4); MEAN CORPUSCULAR HGB CONC 33.8 g/dL (32.0-36.0); MEAN CORPUSCULAR VOLUME 84 fl (80-97); MONOCYTES % (AUTO) 4.9 % (3-13); PLATELET COUNT 493 10^3/uL (150-450); RED CELL DISTRIBUTION WIDTH 13.6 % (11.5-14.0); SEGMENTED NEUTROPHILS % (AUTO) 58.5 % (42-78); TOTAL CELLS COUNTED % (AUTO) 100 %; WHITE BLOOD COUNT 6.3 10^3/uL (4.0-10.5)
[2018-07-08 20:26] LABS: APPEARANCE,URINE CLEAR; BILIRUBIN,URINE NEGATIVE (NEGATIVE); COLOR,URINE STRAW; GLUCOSE, URINE NEGATIVE (NEGATIVE); KETONES,URINE 20 mg/dL (NEGATIVE); LEUKOCYTE ESTERASE,URINE NEGATIVE (NEGATIVE); NITRITE,URINE NEGATIVE (NEGATIVE); PROTEIN,URINE NEGATIVE (NEGATIVE); URINE SPECIFIC GRAVITY 1.013; UROBILINOGEN,URINE NEGATIVE mg/dL (<2.0)
[2018-07-08 20:45] LABS: ALANINE AMINOTRANSFERASE 14 U/L (9-52); ALBUMIN 4.1 g/dL (3.5-5.0); ALKALINE PHOSPHATASE 94 U/L (38-126); ANION GAP 12 (5-19); ASPARTATE AMINO TRANSFERASE 25 U/L (14-36); BILIRUBIN,DIRECT 0.4 mg/dL (0.0-0.4); BILIRUBIN,TOTAL 0.5 mg/dL (0.2-1.3); BLOOD UREA NITROGEN 14 mg/dL (7-20); CALCIUM 9.4 mg/dL (8.4-10.2); CARBON DIOXIDE 25 mmol/L (22-30); CHLORIDE 102 mmol/L (98-107); GLUCOSE 93 mg/dL (75-110); POTASSIUM 4.9 mmol/L (3.6-5.0); SODIUM 138.5 mmol/L (137-145); TOTAL PROTEIN 7.5 g/dL (6.3-8.2)
--- NOTE | 2018-07-08 21:17 | RADIOLOGY REPORT (SQ) ---
EXAM DESCRIPTION: XR ABDOMEN 1 VIEW (KUB) COMPLETED DATE/TME: 07/08/2018 19:44 CLINICAL HISTORY: 27 years, Female, Abdominal pain COMPARISON: EXAM DESCRIPTION: CLINICAL HISTORY: Abdominal pain COMPARISON: None. FINDINGS: Single supine view of the abdomen was submitted. There is no evidence of bowel obstruction. There is no abnormal calcification within the abdomen. There is no acute osseous process visualized. Moderate stool is in the colon. IMPRESSION: Moderate stool. NUMBER OF VIEWS: TECHNIQUE: LIMITATIONS: None. FINDINGS: IMPRESSION: 2010 [facility] [employer]- All Rights Reserved
[2018-07-08] MEDS ORDERED: NORMAL SALINE 1000 ML 1,000 ML IV PRN (22:08)
[2018-07-08 22:47] LABS: INTERNATIONAL RATION (INR) 1.03
[2018-07-08 22:48] LABS: PARTIAL THROMBOPLASTIN TIME 36.7 SEC (23.5-35.8)
[2018-07-09] MEDS ORDERED: ONDANSETRON HCL INJ/PF 4 MG/2 ML SDV IV ONE (00:11)
--- NOTE | 2018-07-09 00:55 | RADIOLOGY REPORT (SQ) ---
EXAM DESCRIPTION: CT ABDOMEN PELVIS WITH IV CONTRAST COMPLETED DATE/TME: 07/09/2018 00:00 CLINICAL HISTORY: 27 years, Female, lower abd pain, vomiting COMPARISON: None. TECHNIQUE: 469 Images stored on PACS. All CT scanners at this facility use dose modulation, iterative reconstruction, and/or weight based dosing when appropriate to reduce radiation dose to as low as reasonably achievable (ALARA). [facility]: Dose Right [facility]: CareDose [facility]: Dose Right [facility]: Teradose 4D [facility]: Smart [employer] LIMITATIONS: None. FINDINGS: Limited evaluation of the lung bases demonstrates slightly nodular pleural thickening in the posterior right lung base. Osseous structures are grossly intact. The liver, spleen, adrenal glands, pancreas, kidneys are unremarkable. Normal appendix. Significant thinning of the anterior abdominal wall musculature. There is an umbilical hernia containing fat and a portion of bowel without evidence for obstruction at this time. No free air or free fluid. No abdominal or pelvic adenopathy. IMPRESSION: Negative for acute intra-abdominal/pelvic process. Umbilical hernia containing fat and bowel without evidence for obstruction or inflammation. TECHNICAL DOCUMENTATION: Quality ID # [id number]: Final reports with documentation of one or more dose reduction techniques (e.g., Automated exposure control, adjustment of the mA and/or kV according to patient size, use of iterative reconstruction technique) 2010 [employer]- All Rights Reserved
--- NOTE | 2018-07-09 01:26 | ER Document Report ---
ED GI/ - General Chief Complaint: Abdominal Pain Stated Complaint: ABDOMINAL PAIN/VOMITING Time Seen by Provider: 07/08/18 19:44 Mode of Arrival: Ambulatory Information source: Patient Notes: Patient presents complaining of abdominal pain off and on for the past 2 weeks. Patient also states that she has had nausea and vomiting.. Patient reports vomiting x2 episodes today. Patient reports last bowel movement was yesterday although does complain of some constipation symptoms. Patient reports decreased appetite. Patient denies any fever. Patient states she was seen here recently for these symptoms and was prescribed Pepcid and Carafate. Patient denies any improvement of her symptoms with these medications. TRAVEL OUTSIDE OF THE [place] IN LAST 30 DAYS: No - HPI Patient complains to provider of: Abdominal pain, Vomiting. No: Diarrhea Onset: Other - 2 weeks Timing/Duration: Waxing and waning Quality of pain: Cramping Pain Level: 3 Location: Other - Lower abdomen Vaginal bleeding (Compared to normal period): None Menstrual period history: denies: Associated symptoms: Constipation, Loss of appetite, Nausea, Vomiting. denies: Diarrhea, Fever, Urinary hesitancy, Urinary frequency, Urinary retention Exacerbated by: Denies Relieved by: Denies Similar symptoms previously: No Recently seen / treated by doctor: Yes - Related Data Allergies/Adverse Reactions: peanut Allergy (Severe, Verified 07/08/18 19:10) Anaphylaxis Past Medical History - General Information source: Patient - Social History Smoking Status: Current Every Day Smoker Chew tobacco use (# tins/day): No Frequency of alcohol use: None Drug Abuse: None Occupation: Foodservice Family History: None Patient has suicidal ideation: No Patient has homicidal ideation: No Pulmonary Medical History: Reports: Hx Asthma Neurological Medical History: Reports: Hx Migraine Renal/ Medical History: Denies: Hx Peritoneal Dialysis Musculoskeletal Medical History: Reports Hx Musculoskeletal Trauma Traumatic Medical History: Reports: Hx Fractures - Both ankles Surgical Hx: Negative - Immunizations Immunizations up to date: Yes Hx Diphtheria, Pertussis, Tetanus Vaccination: Yes Review of Systems - Review of Systems Constitutional: No symptoms reported. denies: Fever, Recent illness EENT: No symptoms reported Cardiovascular: No symptoms reported. denies: Chest pain Respiratory: No symptoms reported. denies: Cough, Short of breath Gastrointestinal: Abdominal pain, Nausea, Vomiting, Constipation. denies: Diarrhea, Poor appetite Genitourinary: No symptoms reported. denies: Dysuria, Flank pain Female Genitourinary: No symptoms reported. denies: , Vaginal discharge , Vaginal bleeding Musculoskeletal: No symptoms reported. denies: Back pain Skin: No symptoms reported Hematologic/Lymphatic: No symptoms reported Neurological/Psychological: No symptoms reported Physical Exam - Vital signs Vitals: Temp Pulse Resp BP Pulse Ox 98.3 F 64 22 H 140/78 H 100 07/08/18 19:27 07/08/18 19:27 07/08/18 19:27 07/08/18 19:27 07/08/18 19:27 - General General appearance: Appears well, Alert In distress: None - HEENT Head: Normocephalic, Atraumatic Eyes: Normal Conjunctiva: Normal Nasal: Normal Mouth/Lips: Normal Mucous membranes: Normal Neck: Normal, Supple. No: Lymphadenopathy - Respiratory Respiratory status: No respiratory distress Chest status: Nontender Breath sounds: Normal. No: Rales, Rhonchi, Stridor, Wheezing Chest palpation: Normal - Cardiovascular Rhythm: Regular Heart sounds: S1 appreciated, S2 appreciated Murmur: No - Abdominal Inspection: Morbidly Obese Distension: No distension Bowel sounds: Normal Tenderness: Tender - lower abd. No: Guarding Organomegaly: No organomegaly - Back Back: Normal, Nontender. No: CVA tenderness - Extremities General upper extremity: Normal inspection, Normal ROM General lower extremity: Normal inspection, Normal ROM - Neurological Neuro grossly intact: Yes Cognition: Normal Stephenson Coma Scale Eye Opening: Spontaneous Stephenson Coma Scale Verbal: Oriented Stephenson Coma Scale Motor: Obeys Commands Hany Coma Scale Total: 15 - Psychological Associated symptoms: Normal affect, Normal mood - Skin Skin Temperature: Warm Skin Moisture: Dry Skin Color: Normal Course - Re-evaluation Re-evalutation: 07/09/18 22:00 Patient continues with lower abdominal tenderness. No guarding. Patient nontoxic in appearance. Patient without any vomiting during her ER stay. 07/09/18 01:25 Patient sleeping, arouses easily to voice. Patient without any vomiting at this time. Abdomen soft, no guarding. Consulted with Dr. Rogers regarding patient presentation and her CT scan report. Recommends outpatient follow-up regarding incidental findings of umbilical hernia as well as pleural thickening with nodular appearance to posterior right lung base. Patient advised of incidental finding of umbilical hernia as well as thickening of the right posterior lung base. Patient encouraged to follow-up with her primary doctor for further evaluation of these findings. Patient's abdomen continues soft without any guarding. Patient without any vomiting during ER stay. Review of patient's CT images does demonstrate moderate stool burden. Will give patient prescription for MiraLAX as well as time medics to help with her symptoms. Patient presents with abdominal pain without signs of peritonitis or other life-threatening or serious etiology. Patient appears stable for discharge and has been instructed to return immediately if the symptoms worsen in any way for reevaluation. The patient has been instructed to return if the symptoms worsen or change in any way. - Vital Signs Vital signs: Temp Pulse Resp BP Pulse Ox 98.3 F 64 22 H 140/78 H 100 07/08/18 19:27 07/08/18 19:27 07/08/18 19:27 07/08/18 19:27 07/08/18 19:27 - Laboratory Result Diagrams: 07/08/18 20:05 07/08/18 20:05 Laboratory results interpreted by me: 07/08/18 07/08/18 07/08/18 20:05 20:05 22:15 Plt Count 493 H APTT 36.7 H Urine Ketones 20 H 07/09/18 01:26 Labs- Entire Visit 07/08/18 07/08/18 07/08/18 20:05 20:05 20:05 WBC 6.3 RBC 4.50 Hgb 12.8 Hct 37.9 MCV 84 MCH 28.4 MCHC 33.8 RDW 13.6 Plt Count 493 H Seg Neutrophils % 58.5 Lymphocytes % 35.4 Monocytes % 4.9 Eosinophils % 0.6 Basophils % 0.6 Absolute Neutrophils 3.7 Absolute Lymphocytes 2.2 Absolute Monocytes 0.3 Absolute Eosinophils 0.0 Absolute Basophils 0.0 PT INR APTT Sodium 138.5 Potassium 4.9 Chloride 102 Carbon Dioxide 25 Anion Gap 12 BUN 14 Creatinine 0.91 Est GFR ( Amer) > 60 Est GFR (Non-Af Amer) > 60 Glucose 93 Calcium 9.4 Total Bilirubin 0.5 Direct Bilirubin 0.4 Neonat Total Bilirubin Not Reportable Neonat Direct Bilirubin Not Reportable Neonat Indirect Bili Not Reportable AST 25 ALT 14 Alkaline Phosphatase 94 Total Protein 7.5 Albumin 4.1 Lipase 112.0 Urine Color STRAW Urine Appearance CLEAR Urine pH 7.0 Ur Specific Almond 1.013 Urine Protein NEGATIVE Urine Glucose (UA) NEGATIVE Urine Ketones 20 H Urine Blood NEGATIVE Urine Nitrite NEGATIVE Urine Bilirubin NEGATIVE Urine Urobilinogen NEGATIVE Ur Leukocyte Esterase NEGATIVE Urine WBC (Auto) 1 Urine RBC (Auto) 0 Squamous Epi Cells Auto 4 Urine Mucus (Auto) RARE Urine Ascorbic Acid NEGATIVE Urine HCG, Qual NEGATIVE Stool Occult Blood 07/08/18 07/08/18 22:00 22:15 WBC RBC Hgb Hct MCV MCH MCHC RDW Plt Count Seg Neutrophils % Lymphocytes % Monocytes % Eosinophils % Basophils % Absolute Neutrophils Absolute Lymphocytes Absolute Monocytes Absolute Eosinophils Absolute Basophils PT 14.0 INR 1.03 APTT 36.7 H Sodium Potassium Chloride Carbon Dioxide Anion Gap BUN Creatinine Est GFR ( Amer) Est GFR (Non-Af Amer) Glucose Calcium Total Bilirubin Direct Bilirubin Neonat Total Bilirubin Neonat Direct Bilirubin Neonat Indirect Bili AST ALT Alkaline Phosphatase Total Protein Albumin Lipase Urine Color Urine Appearance Urine pH Ur Specific Almond Urine Protein Urine Glucose (UA) Urine Ketones Urine Blood Urine Nitrite Urine Bilirubin Urine Urobilinogen Ur Leukocyte Esterase Urine WBC (Auto) Urine RBC (Auto) Squamous Epi Cells Auto Urine Mucus (Auto) Urine Ascorbic Acid Urine HCG, Qual Stool Occult Blood NEGATIVE - Diagnostic Test Radiology reviewed: Image reviewed, Reports reviewed Discharge - Discharge Clinical Impression: Abdominal pain Qualifiers: Abdominal location: lower abdomen, unspecified Qualified Code(s): R10.30 - Lower abdominal pain, unspecified Nausea and vomiting Qualifiers: Vomiting type: unspecified Vomiting Intractability: non-intractable Qualified Code(s): R11.2 - Nausea with vomiting, unspecified Umbilical hernia Qualifiers: Obstruction and gangrene presence: without obstruction or gangrene Qualified Code(s): K42.9 - Umbilical hernia without obstruction or gangrene Condition: Stable Disposition: HOME, SELF-CARE Instructions: Abdominal Pain ([facility]), Antinausea Medication ([facility]), Growth or Mass , Pending Workup ([facility]), Intravenous (IV) Fluids ([facility]), Umbilical Hernia ([facility]), Vomiting ([facility]) Additional Instructions: Return immediately for any new or worsening symptoms Followup with your primary care provider, call tomorrow to make a followup appointment Your CT scan showed an incidental umbilical hernia, if you have increased pain or the hernia is not able to go down or you have new or worsening symptoms she should return for further evaluation. Your CT scan also showed an incidental nodular thickening to the posterior right lung base. Your primary doctor can order further testing to evaluate this finding. Increase oral fluids and stay well-hydrated. Prescriptions: Ondansetron HCl [Zofran 4 mg Tablet] 1 - 2 tab PO Q6 PRN #8 tablet PRN Reason: Polyethylene Glycol 3350 [Miralax] 17 gm PO DAILY #119 powder Forms: Return to Work Referrals: WHITLEY NORTON MD [Primary Care Provider] - Follow up as needed
[2018-07-09 01:43] VITALS: BP 117/71
== END 2018-07-09 01:44 | disposition home or self-care (01) ==
LOC: ER 18:54
DX: R10.30 Lower abdominal pain, unspecified (principal); R11.2 Nausea with vomiting, unspecified; K42.9 Umbilical hernia without obstruction or gangrene; K59.00 Constipation, unspecified; F17.200 Nicotine dependence, unspecified, uncomplicated; Z91.010 Allergy to peanuts
CPT/HCPCS: 99284; 96361; 96374; 96375; 36415; 83690; 85025; 85610; 85730; 82272; 81025; 80053; 81001; 74018; 74177; J1885; J3490; J2405; J7030

== ENCOUNTER → 2018-07-28 | Outpatient (CLI) | payer MEDICAID ==
--- NOTE | 2018-07-28 15:09 | RADIOLOGY REPORT (SQ) ---
EXAM DESCRIPTION: CT CHEST WITHOUT COMPLETED DATE/TIME: 07/28/2018 1:31 pm REASON FOR STUDY: PULMONARY NODULE, RIGHT (R91.11) R91.1 SOLITARY PULMONARY NODULE COMPARISON: None. TECHNIQUE: CT scan performed of the chest without intravenous contrast. Images reviewed with lung, soft tissue and bone windows. Reconstructed coronal and sagittal MPR images reviewed. All images st ored on PACS. All CT scanners at this facility use dose modulation, iterative reconstruction, and/or weight based d osing when appropriate to reduce radiation dose to as low as reasonably achievable (ALARA). [facility]: Dose Right [facility]: CareDose [facility]: Dose Right [facility]: Teradose 4D [facility]: [facility] RADIATION DOSE: CT Rad equipment meets quality standard of care and radiation dose reduction techniq ues were employed. CTDIvol: 14.0 mGy. DLP: 511 mGy-cm. mGy. LIMITATIONS: No technical limitations. FINDINGS: LUNGS AND PLEURA: No masses, infiltrates, or pneumothorax. No pleural effusions or pleura l calcifications. HILAR AND MEDIASTINAL STRUCTURES: No identified masses or abnormal nodes. No obvious aneurysm. HEART AND VASCULAR STRUCTURES: No aneurysm. No pericardial effusion. UPPER ABDOMEN: No significant findings. Limited exam. THYROID AND OTHER SOFT TISSUES: No masses. No adenopathy. BONES: No significant finding. HARDWARE: None in the chest. OTHER: No other significant findings. IMPRESSION: NO SIGNIFICANT FINDING ON NON-CONTRASTED CHEST CT. No pulmonary nodule. TECHNICAL DOCUMENTATION: JOB ID: [id number] Quality ID # [id number]: Final reports with documentation of one or more dose reduction techniques (e.g., Au tomated exposure control, adjustment of the mA and/or kV according to patient size, use of iterative reconstruction technique) 2010 [employer]- All Rights Reserved Reading location - IP/workstation name: [email or web address]
== END ==
LOC: RAD 13:29
PROVIDERS: ATTEND Nurse Practitioner Family
DX: R91.1 Solitary pulmonary nodule (principal)
CPT/HCPCS: 71250

== ENCOUNTER 2018-10-15 14:02 | Emergency (ER) | payer MEDICAID ==
[2018-10-15] MEDS ORDERED: NORMAL SALINE 1000 ML 1,000 ML IV ONE (15:53)
[2018-10-15] MEDS ORDERED: PROMETHAZINE HCL INJ 25 MG/1 ML VIAL IV ONE (15:53)
[2018-10-15] MEDS ORDERED: ACETAMINOPHEN 325 MG TABLET PO ONE (15:53)
--- NOTE | 2018-10-15 15:55 | ER Document Report ---
ED Medical Screen (RME) - General Chief Complaint: Vaginal Bleeding Stated Complaint: VAGINAL BLEEDING, ABDOMINAL PAIN Time Seen by Provider: 10/15/18 15:41 Primary Care Provider: MONICA MCDANIEL FNP-C [Primary Care Provider] - Follow up as needed Notes: Patient is a 27-year-old female, approximately 6-10 weeks gravid that presents to the emergency department for chief complaint of pelvic cramping, and vaginal bleeding and passing clots. ROS: Other than noted above, the 12 point review of systems was reviewed with the patient and were negative, all pertinent findings are included in the HPI. PHYSICAL EXAMINATION: Vital signs reviewed. GENERAL: Patient appears uncomfortable, tearful on exam HEAD: Atraumatic, normocephalic. EYES: Pupils equal round extraocular movements intact, conjunctiva are normal. ENT: Nares patent NECK: Normal range of motion CV: Heart regular rate and rhythm LUNGS: No respiratory distress Musculoskeletal: Normal range of motion NEUROLOGICAL: Normal speech PSYCH: Normal mood, normal affect. MDM: Patient seen and examined for rapid initial assessment. Vital signs reviewed. A comprehensive ED assessment and evaluation of the patient, analysis of test results and completion of the medical decision making process will be conducted by additional ED providers. *Note is created using voice recognition software and may contain spelling, syntax or grammatical errors. TRAVEL OUTSIDE OF THE [place] IN LAST 30 DAYS: No - Related Data Allergies/Adverse Reactions: peanut Allergy (Severe, Verified 10/15/18 14:07) Anaphylaxis Past Medical History - General Last Menstrual Period: 09/12/2018 Pulmonary Medical History: Reports: Hx Asthma Neurological Medical History: Reports: Hx Migraine Renal/ Medical History: Denies: Hx Peritoneal Dialysis Musculoskeltal Medical History: Reports Hx Musculoskeletal Trauma Traumatic Medical History: Reports: Hx Fractures - Both ankles - Immunizations Immunizations up to date: Yes Hx Diphtheria, Pertussis, Tetanus Vaccination: Yes Physical Exam - Vital signs Vitals: Temp Pulse Resp BP Pulse Ox 98.2 F 60 18 122/66 100 10/15/18 14:17 10/15/18 14:17 10/15/18 14:17 10/15/18 14:17 10/15/18 14:17 Course - Vital Signs Vital signs: Temp Pulse Resp BP Pulse Ox 98.2 F 60 18 122/66 100 10/15/18 14:17 10/15/18 14:17 10/15/18 14:17 10/15/18 14:17 10/15/18 14:17 Doctor's Discharge - Discharge Referrals: MONICA MCDANIEL FNP-C [Primary Care Provider] - Follow up as needed
[2018-10-15 16:55] LABS: ABSOLUTE LYMPHOCYTES (AUTO) 2.5 10^3/uL (0.5-4.7); ABSOLUTE MONOCYTES (AUTO) 0.3 10^3/uL (0.1-1.4); ABSOLUTE NEUT (AUTO) 2.3 10^3/uL (1.7-8.2); BASOPHILS % (AUTO) 0.3 % (0-2); EOSINOPHILS % (AUTO) 0.6 % (0-6); HEMATOCRIT 36.5 % (36.0-47.0); HEMOGLOBIN 12.3 g/dL (12.0-15.5); LYMPHOCYTES % (AUTO) 48.4 % (13-45); MEAN CORPUSCULAR HGB CONC 33.7 g/dL (32.0-36.0); MEAN CORPUSCULAR VOLUME 86 fl (80-97); MONOCYTES % (AUTO) 5.9 % (3-13); PLATELET COUNT 419 10^3/uL (150-450); RED BLOOD COUNT 4.25 10^6/uL (3.72-5.28); RED CELL DISTRIBUTION WIDTH 14.3 % (11.5-14.0); SEGMENTED NEUTROPHILS % (AUTO) 44.8 % (42-78); TOTAL CELLS COUNTED % (AUTO) 100 %; WHITE BLOOD COUNT 5.1 10^3/uL (4.0-10.5)
[2018-10-15 17:07] LABS: APPEARANCE,URINE SLIGHTLY-CLOUDY; BILIRUBIN,URINE NEGATIVE (NEGATIVE); COLOR,URINE YELLOW; GLUCOSE, URINE NEGATIVE (NEGATIVE); KETONES,URINE TRACE mg/dL (NEGATIVE); LEUKOCYTE ESTERASE,URINE NEGATIVE (NEGATIVE); NITRITE,URINE NEGATIVE (NEGATIVE); PROTEIN,URINE 30 mg/dL (NEGATIVE); URINE SPECIFIC GRAVITY 1.017; UROBILINOGEN,URINE NEGATIVE mg/dL (<2.0)
--- NOTE | 2018-10-15 17:15 | RADIOLOGY REPORT (SQ) ---
EXAM DESCRIPTION: U/S OB TRANSVAGINAL W/O DOP COMPLETED DATE/TIME: 10/15/2018 4:54 pm REASON FOR STUDY: vaginal bleeding, ?6-10 weeks COMPARISON: None. TECHNIQUE: Transvaginal static and realtime grayscale images acquired of the pelvis. Additional triston cted spectral and color Doppler images recorded. All images stored on PACs. bHCG: Not available. CLINICAL DATES: JOSE: 06/19/2019. EGA 4 weeks 5 days LIMITATIONS: None. FINDINGS: FETUS: Intra-uterine not visualized. ULTRASOUND EGA: Not available. ULTRASOUND JOSE: Not available EFW: Not applicable less than 20 weeks. CRL: Not visualized. FHR: Not visualized. SURVEY: Not available. AMNIOTIC FLUID: Not applicable. PLACENTA: Not applicable. SUBCHORIONIC BLEED: No. SIZE OF BLEED: Not applicable. UTERUS: The uterus measures 7.9 x 4.7 x 5.0 cm. No masses. No anomalies. CERVICAL LENGTH: 3.0 cm Closed. RIGHT ADNEXA: The right ovary measures 3.2 x 1.8 x 2.9 cm. Normal ovary with normal vascular flow. No adnexal free fluid. No adnexal masses. LEFT ADNEXA: The left ovary measures 2.9 x 1.5 x 1.8 cm. Normal ovary with normal vascular flow. No adnexal free fluid. No adnexal masses. FREE FLUID: None. OTHER: The endometrial stripe measures 3.6 mm. Small amount of free fluid in the posterior cul-de-s ac. IMPRESSION: INTRAUTERINE NOT VISUALIZED. CORRELATION SUGGESTED AND FOLLOW-UP EXAMINATION IN 7 TO 14 DAYS if clinically indicated. Trimester of : First - 0 to 13 weeks. COMMENT: 1. The results of this examination were discussed with the emergency department provider o n 10/15/2018 at 17:06 hours. TECHNICAL DOCUMENTATION: JOB ID: [id number] [employer]- All Rights Reserved rev Reading location - IP/workstation name: [email or web address]
--- NOTE | 2018-10-15 17:22 | ER Document Report ---
HPI - HPI Patient complains to provider of: Vaginal bleeding Time Seen by Provider: 10/15/18 15:41 Onset: This morning Onset/Duration: Better Quality of pain: Cramping Pain Level: 3 Context: Patient states that she had a positive test last month but thinks that she may be very early along. Patient states she developed pelvic cramping around 11 AM today and had heavy bleeding with clots. Patient states that the bleeding has started to lessen up. Patient denies any fever or urinary symptoms. Associated Symptoms: Other - Vaginal bleeding. denies: Chest pain, Fever, Nausea, Vomiting Exacerbated by: Denies Relieved by: Denies Similar symptoms previously: Yes Recently seen / treated by doctor: No - ROS ROS below otherwise negative: Yes Systems Reviewed and Negative: Yes All other systems reviewed and negative - CONSTITUTIONAL Constitutional: DENIES: Fever - NEURO Neurology: DENIES: Headache - GASTROINTESTINAL Gastrointestinal: REPORTS: Abdominal Pain. DENIES: Nausea, Patient vomiting - REPRODUCTIVE Reproductive: REPORTS: :, Abnormal bleeding / discharge - MUSCULOSKELETAL Musculoskeletal: DENIES: Extremity pain, Back Pain - DERM Skin Color: Normal Skin Problems: None Past Medical History - General Information source: Patient Last Menstrual Period: 09/12/2018 - Social History Smoking Status: Never Smoker Frequency of alcohol use: None Drug Abuse: None Occupation: Foodservice Family History: None Patient has suicidal ideation: No Patient has homicidal ideation: No Pulmonary Medical History: Reports: Hx Asthma Neurological Medical History: Reports: Hx Migraine Renal/ Medical History: Denies: Hx Peritoneal Dialysis Musculoskeletal Medical History: Reports Hx Musculoskeletal Trauma Traumatic Medical History: Reports: Hx Fractures - Both ankles Surgical Hx: Negative - Immunizations Immunizations up to date: Yes Hx Diphtheria, Pertussis, Tetanus Vaccination: Yes Vertical Provider Document - CONSTITUTIONAL Agree With Documented VS: Yes Exam Limitations: No Limitations General Appearance: WD/WN, No Apparent Distress - INFECTION CONTROL TRAVEL OUTSIDE OF THE [place] IN LAST 30 DAYS: No - HEENT HEENT: Atraumatic, Normocephalic - NECK Neck: Normal Inspection, Supple - RESPIRATORY Respiratory: Breath Sounds Normal, No Respiratory Distress - CARDIOVASCULAR Cardiovascular: Regular Rate, Regular Rhythm, No Murmur - GI/ABDOMEN Gastrointestinal: Abdomen Soft, Abdomen Tender - lower pelvic tenderness, No Organomegaly, Normal Bowel Sounds - BACK Back: Normal Inspection. negative: CVA Tenderness-Right, CVA Tenderness-Left - MUSCULOSKELETAL/EXTREMETIES Musculoskeletal/Extremeties: ALEXA CHOE - NEURO Level of Consciousness: Awake, Alert, Appropriate Motor/Sensory: No Motor Deficit - DERM Integumentary: Warm, Dry, No Rash Course - Re-evaluation Re-evalutation: 10/15/18 18:08 Patient sleeping, arouses easily to voice. Patient states bleeding has lessened and her pain is better after the Tylenol she was given in triage. Patient advised that her quantitative test was negative and her ultrasound did not show any intrauterine . Suspect that symptoms are likely at tributed to her menstrual cycle versus a miscarriage as patient's bleeding and cramping started today and we would expect to see an elevation in the quantitative hCG test even if she had miscarried. Patient encouraged to follow- up with her [employer]person [employer] for recheck. - Vital Signs Vital signs: Temp Pulse Resp BP Pulse Ox 98.2 F 60 18 122/66 100 10/15/18 14:17 10/15/18 14:17 10/15/18 14:17 10/15/18 14:17 10/15/18 14:17 - Laboratory Result Diagrams: 10/15/18 16:22 Laboratory results interpreted by me: 10/15/18 10/15/18 16:22 16:22 RDW 14.3 H Lymphocytes % 48.4 H Urine Protein 30 H Urine Ketones TRACE H Urine Blood LARGE H 10/15/18 18:08 Labs- Entire Visit 10/15/18 10/15/18 10/15/18 16:22 16:22 16:22 WBC 5.1 RBC 4.25 Hgb 12.3 Hct 36.5 MCV 86 MCH 29.0 MCHC 33.7 RDW 14.3 H Plt Count 419 Seg Neutrophils % 44.8 Lymphocytes % 48.4 H Monocytes % 5.9 Eosinophils % 0.6 Basophils % 0.3 Absolute Neutrophils 2.3 Absolute Lymphocytes 2.5 Absolute Monocytes 0.3 Absolute Eosinophils 0.0 Absolute Basophils 0.0 Beta HCG, Quant < 2.39 Total Beta HCG NEGATIVE Urine Color Urine Appearance Urine pH Ur Specific [place]ier Urine Protein Urine Glucose (UA) Urine Ketones Urine Blood Urine Nitrite Urine Bilirubin Urine Urobilinogen Ur Leukocyte Esterase Urine WBC (Auto) Urine RBC (Auto) Squamous Epi Cells Auto Urine Mucus (Auto) Urine Ascorbic Acid Blood Type O POSITIVE Rhogam Indicated RHOGAM NOT INDICATED 10/15/18 16:22 WBC RBC Hgb Hct MCV MCH MCHC RDW Plt Count Seg Neutrophils % Lymphocytes % Monocytes % Eosinophils % Basophils % Absolute Neutrophils Absolute Lymphocytes Absolute Monocytes Absolute Eosinophils Absolute Basophils Beta HCG, Quant Total Beta HCG Urine Color YELLOW Urine Appearance SLIGHTLY-CLOUDY Urine pH 8.0 Ur Specific [place]ier 1.017 Urine Protein 30 H Urine Glucose (UA) NEGATIVE Urine Ketones TRACE H Urine Blood LARGE H Urine Nitrite NEGATIVE Urine Bilirubin NEGATIVE Urine Urobilinogen NEGATIVE Ur Leukocyte Esterase NEGATIVE Urine WBC (Auto) 6 Urine RBC (Auto) 53 Squamous Epi Cells Auto 6 Urine Mucus (Auto) RARE Urine Ascorbic Acid NEGATIVE Blood Type Rhogam Indicated - Diagnostic Test Radiology reviewed: Reports reviewed Discharge - Discharge Clinical Impression: Vagina bleeding Condition: Stable Disposition: HOME, SELF-CARE Instructions: Dysmenorrhea ([facility]) Additional Instructions: Return immediately for any new or worsening symptoms Followup with your [employer]person [employer], call Thursday for an appointment Forms: Return to Work Referrals: MONICA MCDANIEL FNP-C [NO LOCAL MD] - Follow up as needed [facility] [Provider Group] - Follow up in 3-5 days
[2018-10-15 18:44] VITALS: BP 118/62
== END 2018-10-15 18:43 | disposition home or self-care (01) ==
LOC: ER 14:02
DX: N93.8 Other specified abnormal uterine and vaginal bleeding (principal); R10.2 Pelvic and perineal pain
CPT/HCPCS: 99284; 96361; 96374; 86900; 86901; 36415; 87086; 84702; 85025; 87088; 81001; 76817; J3490; J2550; J7030

== ENCOUNTER 2018-12-01 18:42 | Emergency (ER) | payer MEDICAID ==
[2018-12-01 19:26] LABS: APPEARANCE,URINE CLOUDY; BILIRUBIN,URINE NEGATIVE (NEGATIVE); COLOR,URINE YELLOW; GLUCOSE, URINE NEGATIVE (NEGATIVE); KETONES,URINE NEGATIVE (NEGATIVE); LEUKOCYTE ESTERASE,URINE LARGE (NEGATIVE); NITRITE,URINE NEGATIVE (NEGATIVE); PROTEIN,URINE NEGATIVE (NEGATIVE); URINE SPECIFIC GRAVITY 1.015; UROBILINOGEN,URINE NEGATIVE mg/dL (<2.0)
[2018-12-01] MEDS ORDERED: PROMETHAZINE HCL 25 MG TABLET PO ONE (20:40)
--- NOTE | 2018-12-01 20:47 | ER Document Report ---
ED Medical Screen (RME) - General Chief Complaint: Nausea Stated Complaint: LIGHT HEADED/NAUSEA Time Seen by Provider: 12/01/18 20:38 Mode of Arrival: Ambulatory Information source: Patient Notes: patient presents to the ED with c/o n/v that started this morning. pt is . Denies abd pain, denies dysuria, denies vag bleed. Reports that she is never felt this way with her other pregnancies. She will feels like maybe she is overdoing it at work. I have greeted and performed a rapid initial assessment of this patient. A comprehensive ED assessment and evaluation of the patient, analysis of test results and completion of the medical decision making process will be conducted by additional ED providers. Dictation of this chart was performed using voice recognition software; therefore, there may be some unintended grammatical errors. TRAVEL OUTSIDE OF THE [place] IN LAST 30 DAYS: No - Related Data Allergies/Adverse Reactions: peanut Allergy (Severe, Verified 10/15/18 14:07) Anaphylaxis Past Medical History Pulmonary Medical History: Reports: Hx Asthma Neurological Medical History: Reports: Hx Migraine Renal/ Medical History: Denies: Hx Peritoneal Dialysis Musculoskeltal Medical History: Reports Hx Musculoskeletal Trauma Traumatic Medical History: Reports: Hx Fractures - Both ankles - Immunizations Immunizations up to date: Yes Hx Diphtheria, Pertussis, Tetanus Vaccination: Yes Physical Exam - Vital signs Vitals: Temp Pulse Resp BP Pulse Ox 98.4 F 73 18 138/74 H 100 12/01/18 18:49 12/01/18 18:49 12/01/18 18:49 12/01/18 18:49 12/01/18 18:49 Course - Vital Signs Vital signs: Temp Pulse Resp BP Pulse Ox 98.4 F 73 18 138/74 H 100 12/01/18 18:49 12/01/18 18:49 12/01/18 18:49 12/01/18 18:49 12/01/18 18:49 - Laboratory Laboratory results interpreted by me: 12/01/18 18:48 Urine Blood SMALL H Ur Leukocyte Esterase LARGE H Urine HCG, Qual POSITIVE H
[2018-12-01 21:23] LABS: ABSOLUTE LYMPHOCYTES (AUTO) 1.5 10^3/uL (0.5-4.7); ABSOLUTE MONOCYTES (AUTO) 0.3 10^3/uL (0.1-1.4); ABSOLUTE NEUT (AUTO) 3.3 10^3/uL (1.7-8.2); BASOPHILS % (AUTO) 0.5 % (0-2); EOSINOPHILS % (AUTO) 0.4 % (0-6); HEMATOCRIT 37.5 % (36.0-47.0); HEMOGLOBIN 12.6 g/dL (12.0-15.5); LYMPHOCYTES % (AUTO) 28.4 % (13-45); MEAN CORPUSCULAR HEMOGLOBIN 29.1 pg (27.0-33.4); MEAN CORPUSCULAR HGB CONC 33.6 g/dL (32.0-36.0); MEAN CORPUSCULAR VOLUME 87 fl (80-97); MONOCYTES % (AUTO) 6.3 % (3-13); PLATELET COUNT 409 10^3/uL (150-450); RED BLOOD COUNT 4.33 10^6/uL (3.72-5.28); RED CELL DISTRIBUTION WIDTH 13.9 % (11.5-14.0); SEGMENTED NEUTROPHILS % (AUTO) 64.4 % (42-78); TOTAL CELLS COUNTED % (AUTO) 100 %; WHITE BLOOD COUNT 5.1 10^3/uL (4.0-10.5)
[2018-12-01 21:40] LABS: ALANINE AMINOTRANSFERASE 19 U/L (9-52); ALBUMIN 3.7 g/dL (3.5-5.0); ALKALINE PHOSPHATASE 67 U/L (38-126); ANION GAP 7 (5-19); ASPARTATE AMINO TRANSFERASE 16 U/L (14-36); BILIRUBIN,DIRECT 0.1 mg/dL (0.0-0.4); BILIRUBIN,TOTAL 0.3 mg/dL (0.2-1.3); BLOOD UREA NITROGEN 8 mg/dL (7-20); CALCIUM 9.3 mg/dL (8.4-10.2); CARBON DIOXIDE 23 mmol/L (22-30); CHLORIDE 107 mmol/L (98-107); GLUCOSE 96 mg/dL (75-110); POTASSIUM 4.5 mmol/L (3.6-5.0); SODIUM 136.6 mmol/L (137-145); TOTAL PROTEIN 6.9 g/dL (6.3-8.2)
[2018-12-02] MEDS ORDERED: ONDANSETRON ODT 4 MG TAB (6 TAB/ER DISP) PO PRN (00:43)
[2018-12-02] MEDS ORDERED: CEPHALEXIN 500 MG CAPSULE PO ONE (00:44)
--- NOTE | 2018-12-02 00:47 | ER Document Report ---
ED GI/ - General Chief Complaint: Nausea Stated Complaint: LIGHT HEADED/NAUSEA Time Seen by Provider: 12/01/18 20:38 Mode of Arrival: Ambulatory Notes: Patient is a 27-year-old female, at uncertain gestation that comes emergency department for chief complaint of vomiting. She states that she was at work, started vomiting, vomited 4 times. She states that she has had no abdominal pain, pelvic pain, cramping, or bleeding. She denies any fever or chills. She denies any other complaints. TRAVEL OUTSIDE OF THE [place] IN LAST 30 DAYS: No - Related Data Allergies/Adverse Reactions: peanut Allergy (Severe, Verified 10/15/18 14:07) Anaphylaxis Past Medical History - General Information source: Patient - Social History Smoking Status: Never Smoker Frequency of alcohol use: None Drug Abuse: None Lives with: Family Family History: None Patient has suicidal ideation: No Patient has homicidal ideation: No Pulmonary Medical History: Reports: Hx Asthma Neurological Medical History: Reports: Hx Migraine Renal/ Medical History: Denies: Hx Peritoneal Dialysis Musculoskeletal Medical History: Reports Hx Musculoskeletal Trauma Traumatic Medical History: Reports: Hx Fractures - Both ankles - Immunizations Immunizations up to date: Yes Hx Diphtheria, Pertussis, Tetanus Vaccination: Yes Review of Systems - Review of Systems Constitutional: No symptoms reported EENT: No symptoms reported Cardiovascular: No symptoms reported Respiratory: No symptoms reported Gastrointestinal: See HPI Genitourinary: No symptoms reported Female Genitourinary: See HPI Musculoskeletal: No symptoms reported Skin: No symptoms reported Hematologic/Lymphatic: No symptoms reported Neurological/Psychological: No symptoms reported Physical Exam - Vital signs Vitals: Temp Pulse Resp BP Pulse Ox 98.4 F 73 18 138/74 H 100 12/01/18 18:49 12/01/18 18:49 12/01/18 18:49 12/01/18 18:49 12/01/18 18:49 - Notes Notes: GENERAL: Alert, interacts well. No acute distress. HEAD: Normocephalic, atraumatic. EYES: Pupils equal, round, and reactive to light. Extraocular movements intact. ENT: Oral mucosa moist, tongue midline. Oropharynx unremarkable. Airway patent. Nares patent, no nasal septal hematoma, TM's intact. NECK: Full range of motion. Supple. Trachea midline. LUNGS: Clear to auscultation bilaterally, no wheezes, rales, or rhonchi. No respiratory distress. HEART: Regular rate and rhythm. No murmur ABDOMEN: Soft, non-tender. Non-distended. Bowel sounds present in all 4 quadrants. GENITOURINARY: Deferred EXTREMITIES: Moves all 4 extremities spontaneously. No edema, normal radial and dorsalis pedis pulses bilaterally. No cyanosis. BACK: no cervical, thoracic, lumbar midline tenderness. No saddle anesthesia, normal distal neurovascular exam. NEUROLOGICAL: Alert and oriented x3. Normal speech. [cranial nerves II through XII grossly intact]. PSYCH: Normal affect, normal mood. SKIN: Warm, dry, normal turgor. No rashes or lesions noted. Course - Re-evaluation Re-evalutation: CBC unremarkable, chemistry unremarkable. test is positive, hCG is elevated. Patient has had no abdominal pain, no vaginal bleeding. As result after discussion no ultrasound will be performed. Patient states she is simply here because of the vomiting, she is requesting medication for this and a work-r elease. Vital signs unremarkable, patient well-appearing, soft benign abdomen. Provided with medications, discussed options and decision was made for Zofran because she has had this in the past. Discussed follow-up and return precautions. Patient states understanding and agreement. - Vital Signs Vital signs: Temp Pulse Resp BP Pulse Ox 98.4 F 82 18 140/78 H 99 12/02/18 01:11 12/02/18 01:11 12/02/18 01:11 12/02/18 01:11 12/02/18 01:11 - Laboratory Result Diagrams: 12/01/18 21:08 12/01/18 21:08 Laboratory results interpreted by me: 12/01/18 12/01/18 18:48 21:08 Sodium 136.6 L Beta HCG, Quant 35030.00 H Urine Blood SMALL H Ur Leukocyte Esterase LARGE H Urine HCG, Qual POSITIVE H Discharge - Discharge Clinical Impression: Weakness Nausea and vomiting Qualifiers: Vomiting type: unspecified Vomiting Intractability: non-intractable Qualified Code(s): R11.2 - Nausea with vomiting, unspecified Condition: Stable Disposition: HOME, SELF-CARE Additional Instructions: Your laboratory workup does not show any concerning findings except possible urinary tract infection. Take Keflex antibiotics as prescribed, take Zofran for nausea as prescribed, drink plenty fluids and rest. Follow-up with [facility] for additional evaluation and management. Return if you worsen including abdominal pain, vaginal bleeding, fever, uncontrolled vomiting, or any other concerning symptoms. Prescriptions: Cephalexin Monohydrate [Keflex 500 mg Capsule] 500 mg PO BID 5 Days #10 capsule Ondansetron [Zofran Odt 4 mg Tablet] 1 - 2 tab PO Q4H PRN #15 tab.rapdis PRN Reason: For Nausea/Vomiting Forms: Return to Work
[2018-12-02 01:12] VITALS: BP 140/78
== END 2018-12-02 01:13 | disposition home or self-care (01) ==
LOC: ER 18:42
DX: O21.9 Vomiting of pregnancy, unspecified (principal); O26.899 Other specified pregnancy related conditions, unspecified trimester; R53.1 Weakness; O99.519 Diseases of the respiratory system complicating pregnancy, unspecified trimester; J45.909 Unspecified asthma, uncomplicated; Z3A.00 Weeks of gestation of pregnancy not specified; Z91.010 Allergy to peanuts; Z87.892 Personal history of anaphylaxis
CPT/HCPCS: 99283; 36415; 87086; 84702; 85025; 81025; 87088; 80053; 81001; J3490

== ENCOUNTER 2019-01-18 12:11 | Day surgery (SDC) | payer MEDICAID ==
[2019-01-18] MEDS ORDERED: METOCLOPRAMIDE HCL INJ/PF 10 MG/2 ML SDV ONE (12:40)
[2019-01-18] MEDS ORDERED: FAMOTIDINE INJ/PF 20 MG/2 ML SDV IV ONE (12:42)
[2019-01-18] MEDS ORDERED: CITRIC ACID/SODIUM CITRATE ORAL SOLN 15 ML UDCUP ONE (12:43)
[2019-01-18] MEDS ORDERED: MIDAZOLAM 2 MG/2 ML INJ ONE ×2 (12:43→16:16)
[2019-01-18 12:47] LABS: APPEARANCE,URINE SLIGHTLY-CLOUDY; BILIRUBIN,URINE NEGATIVE (NEGATIVE); COLOR,URINE YELLOW; GLUCOSE, URINE NEGATIVE (NEGATIVE); KETONES,URINE NEGATIVE (NEGATIVE); LEUKOCYTE ESTERASE,URINE NEGATIVE (NEGATIVE); NITRITE,URINE NEGATIVE (NEGATIVE); PROTEIN,URINE NEGATIVE (NEGATIVE); URINE SPECIFIC GRAVITY 1.018; UROBILINOGEN,URINE NEGATIVE mg/dL (<2.0)
[2019-01-18] MEDS ORDERED: RINGERS SOLUTION,LACTATED 1,000 ML IV PRN (13:03)
[2019-01-18] MEDS ORDERED: OXYCODONE-ACETAMINOPHEN 5-325 MG TABLET PO PRN ×2 (13:03→13:04)
[2019-01-18] MEDS ORDERED: IBUPROFEN 800 MG TABLET PO PRN (13:03)
[2019-01-18 14:11] LABS: ABSOLUTE LYMPHOCYTES (AUTO) 1.8 10^3/uL (0.5-4.7); ABSOLUTE MONOCYTES (AUTO) 0.3 10^3/uL (0.1-1.4); ABSOLUTE NEUT (AUTO) 1.3 10^3/uL (1.7-8.2); BASOPHILS % (AUTO) 0.6 % (0-2); HEMATOCRIT 36.1 % (36.0-47.0); HEMOGLOBIN 11.8 g/dL (12.0-15.5); LYMPHOCYTES % (AUTO) 51.8 % (13-45); MEAN CORPUSCULAR HGB CONC 32.6 g/dL (32.0-36.0); MEAN CORPUSCULAR VOLUME 86 fl (80-97); MONOCYTES % (AUTO) 9.2 % (3-13); PLATELET COUNT 356 10^3/uL (150-450); RED BLOOD COUNT 4.21 10^6/uL (3.72-5.28); RED CELL DISTRIBUTION WIDTH 13.8 % (11.5-14.0); SEGMENTED NEUTROPHILS % (AUTO) 37.4 % (42-78); TOTAL CELLS COUNTED % (AUTO) 100 %; WHITE BLOOD COUNT 3.5 10^3/uL (4.0-10.5)
[2019-01-18] MEDS ORDERED: FENTANYL CITRATE INJ/PF 100 MCG/2 ML AMPUL ONE (16:16)
[2019-01-18] MEDS ORDERED: PROPOFOL INJ 200 MG/20 ML VIAL IV ONE (16:17)
[2019-01-18] MEDS ORDERED: MORPHINE SULFATE 10 MG/ML INJ IV PRN (16:51)
[2019-01-18] MEDS ORDERED: PROMETHAZINE HCL INJ 25 MG/1 ML VIAL IV PRN ×2 (16:51)
[2019-01-18] MEDS ORDERED: MEPERIDINE HCL/PF INJ 25 MG/1 ML DISP.SYRIN IV PRN (16:51)
[2019-01-18] MEDS ORDERED: DIPHENHYDRAMINE HCL 50 MG/ML VIAL IV PRN (16:51)
[2019-01-18] MEDS ORDERED: ONDANSETRON HCL INJ/PF 4 MG/2 ML SDV IV PRN (16:51)
[2019-01-18] MEDS ORDERED: FENTANYL CITRATE INJ/PF 100 MCG/2 ML AMPUL IV PRN ×3 (16:51)
[2019-01-18] MEDS ORDERED: KETOROLAC TROMETHAMINE INJ/PF 30 MG/1 ML SDV ONE (17:25)
[2019-01-18] MEDS: FENTANYL CITRATE INJ/PF 100 MCG/2 ML AMPUL ONE ×2 (17:26→17:31)
--- NOTE | 2019-01-18 17:30 | OPERATIVE REPORT E ---
Operative Report NAME: ARNOLDO SNYDER : 1990 AGE: 28Y DATE OF SURGERY: 01/18/2019 ROOM: PREOPERATIVE DIAGNOSIS: INCOMPLETE AB. POSTOPERATIVE DIAGNOSIS: INCOMPLETE AB SURGEON: LEIGH RODRIGUEZ M.D. ANESTHESIA: General. ANESTHESIOLOGIST: Mariana Mckoy M.D. FINDINGS: The uterus sounded to approximately 10 cm and a small amount of products of conception obtained. COMPLICATIONS: None. ESTIMATED BLOOD LOSS 50 mL. SPECIMENS REMOVED: Products of conception. PROCEDURE: Suction D and C. PROCEDURE IN DETAIL: The patient was taken to the operating room, prepared and draped in the normal sterile fashion and placed in the lithotomy position. Under sterile conditions an in and out cath was performed draining approximately 100 mL of clear urine. A sterile speculum was placed in the vagina. The cervix was grasped on the anterior lip with a single-tooth tenaculum. The uterus was then sounded to approximately 10 cm. It was dilated to accommodate an 8 curved cup suction curette, which was introduced. Only a small amount of scant tissue was obtained, so rough curettage was performed with a Kevorkian curette and the suctioning curette was passed once more. Continued suctioning curette and sharp curette as needed until it was felt that the uterus was completely emptied, another sharp curette was performed and found that the uterus did feel to have 360 degrees of complete grid indicating that products of conception were all removed. At this point the procedure was completed. Instruments were removed. Sponge, lap, and needle counts were correct x2 and the patient was taken to recovery in stable condition. DICTATING PHYSICIAN: LEIGH RODRIGUEZ M.D. [id number] PHY#: [id number] ID: [id number] JOB#: [id number] ACCT: [id number] cc:LEIGH RODRIGUEZ M.D. >
[2019-01-18] MEDS ORDERED: HYDROMORPHONE HCL INJ/PF 2 MG/ML AMPULE ONE (17:56)
[2019-01-18] MEDS ORDERED: OXYCODONE-ACETAMINOPHEN 5-325 MG TABLET ONE (18:48)
[2019-01-18 20:23] VITALS: BP 123/78
== END 2019-01-18 20:05 | disposition home or self-care (01) ==
LOC: OROUT 12:11
PROVIDERS: ATTEND Obstetrics & Gynecology
DX: O03.39 Incomplete spontaneous abortion with other complications (principal); J45.909 Unspecified asthma, uncomplicated; Z79.51 Long term (current) use of inhaled steroids
CPT/HCPCS: 86900; 86901; 36415; 86850; 85025; 81001; 88305 ×2; 59812; J2250; J3010; J1885; J2765; J1170; J3490; J2704; S0028; 1965

== ENCOUNTER 2019-02-25 13:11 | Emergency (ER) | payer OTHER, MEDICAID ==
[2019-02-25 13:21] VITALS: BP 113/68
[2019-02-25] MEDS ORDERED: LIDOCAINE 1% INJ-PF (10 MG/ML) 30 ML SDV INJ ONE (15:09)
[2019-02-25] MEDS ORDERED: DIPH/PERTUSS(ACELL)/TETANUS VAC/PF 0.5 ML SYR (>=10YO) IM ONE (15:10)
--- NOTE | 2019-02-25 15:10 | ER Document Report ---
ED Medical Screen (RME) - General Chief Complaint: Laceration Stated Complaint: FINGER INJURY Time Seen by Provider: 02/25/19 15:07 Primary Care Provider: DARRICK COLLINS DO [Primary Care Provider] - Follow up as needed Mode of Arrival: Ambulatory Information source: Patient Notes: Patient is a 28-year-old female with a 2 cm laceration to her left index finger. No active bleeding noted at this time. Patient reports she was cutting something with a knife. She is unsure when her last tetanus shot was. She states this happened just prior to arrival. Patient will be seen here about 5, suture set up was ordered. I have greeted and performed a rapid initial assessment of this patient. A comprehensive ED assessment and evaluation of the patient, analysis of test results and completion of the medical decision making process will be conducted by additional ED providers. I have specifically instructed the patient or family members with the patient to immediately return to any nursing staff should anything change in the patient's condition or with their chief complaint. This medical record was dictated with voice recognizing software. There may be grammatical, syntax errors that are unintended. TRAVEL OUTSIDE OF THE [place] IN LAST 30 DAYS: No - Related Data Allergies/Adverse Reactions: peanut Allergy (Severe, Verified 10/15/18 14:07) Anaphylaxis Past Medical History - Past Medical History Cardiac Medical History: Denies: Hx Coronary Artery Disease, Hx Heart Attack, Hx Hypertension Pulmonary Medical History: Reports: Hx Asthma - LAST ATTACK 5 YEARS AGO Denies: Hx Bronchitis, Hx COPD, Hx Pneumonia Neurological Medical History: Reports: Hx Migraine. Denies: Hx Cerebrovascular Accident, Hx Seizures Renal/ Medical History: Denies: Hx Peritoneal Dialysis Musculoskeltal Medical History: Denies Hx Arthritis, Reports Hx Musculoskeletal Trauma Traumatic Medical History: Reports: Hx Fractures - Both ankles - Immunizations Immunizations up to date: Yes Hx Diphtheria, Pertussis, Tetanus Vaccination: Yes History of Influenza Vaccine for 05/2017 - 10/2017 Season: No Physical Exam - Vital signs Vitals: Temp Pulse Resp BP Pulse Ox 98.1 F 67 16 113/68 100 02/25/19 13:20 02/25/19 13:20 02/25/19 13:20 02/25/19 13:20 02/25/19 13:20 Course - Vital Signs Vital signs: Temp Pulse Resp BP Pulse Ox 98.1 F 67 16 113/68 100 07/05/19 13:20 02/25/19 13:20 02/25/19 13:20 02/25/19 13:20 02/25/19 13:20 Doctor's Discharge - Discharge Referrals: DARRICK COLLINS, [Primary Care Provider] - Follow up as needed
--- NOTE | 2019-02-25 15:36 | ER Document Report ---
ED General - General Chief Complaint: Laceration Stated Complaint: FINGER INJURY Time Seen by Provider: 02/25/19 15:07 Primary Care Provider: DARRICK COLLINS DO [NO LOCAL MD] - Follow up in 1 week Mode of Arrival: Ambulatory Notes: Patient is a 28-year-old female who presents the emergency department with a cut on her left second finger. Patient was cutting meat and had cut her finger. She received her tetanus vaccine in triage. Denies any past medical history. Does not take any medication. She states that she does have some numbness to the area where she had cut her finger. The cut is on the lateral portion of the tip of her finger. TRAVEL OUTSIDE OF THE [place] IN LAST 30 DAYS: No - Related Data Allergies/Adverse Reactions: peanut Allergy (Severe, Verified 10/15/18 14:07) Anaphylaxis Past Medical History - General Information source: Patient - Social History Smoking Status: Unknown if Ever Smoked Chew tobacco use (# tins/day): No Family History: None Patient has suicidal ideation: No Patient has homicidal ideation: No - Past Medical History Cardiac Medical History: Denies: Hx Coronary Artery Disease, Hx Heart Attack, Hx Hypertension Pulmonary Medical History: Reports: Hx Asthma - LAST ATTACK 5 YEARS AGO Denies: Hx Bronchitis, Hx COPD, Hx Pneumonia Neurological Medical History: Reports: Hx Migraine. Denies: Hx Cerebrovascular Accident, Hx Seizures Renal/ Medical History: Denies: Hx Peritoneal Dialysis Musculoskeletal Medical History: Denies Hx Arthritis, Reports Hx Musculoskeletal Trauma Traumatic Medical History: Reports: Hx Fractures - Both ankles - Immunizations Immunizations up to date: Yes Hx Diphtheria, Pertussis, Tetanus Vaccination: Yes Review of Systems - Review of Systems Notes: REVIEW OF SYSTEMS: CONSTITUTIONAL : Denies recent illness. Denies recent unintentional weight loss. Denies fever, chills, or sweats. EENT: Denies eye, ear, throat, or mouth pain, discharge, or symptoms. Denies nasal or sinus congestion. CARDIOVASCULAR: Denies chest pain. RESPIRATORY: Denies shortness of breath, cough, congestion, difficulty breathing, or wheezing. GASTROINTESTINAL: Denies nausea, vomiting, and diarrhea. Denies abdominal pain. Denies constipation. GENITOURINARY: Denies difficulty urinating, burning, blood in urine, urgency or frequency. MUSCULOSKELETAL: Denies neck and back pain. Denies joint pain or swelling. SKIN: See HPI HEMATOLOGIC : Denies easy bruising or bleeding. LYMPHATIC: Denies swollen, painful, enlarged glands. NEUROLOGICAL: Denies no numbness or tingling denies weakness. Denies headache. Denies altered mental status. Denies alteration in speech. PSYCHIATRIC: Denies stress, anxiety, alteration in sleep patterns, or depression. All other systems reviewed and negative. Physical Exam - Vital signs Vitals: Temp Pulse Resp BP Pulse Ox 98.1 F 67 16 113/68 100 02/25/19 13:20 02/25/19 13:20 02/25/19 13:20 02/25/19 13:02/25/19 13:20 - Notes Notes: PHYSICAL EXAMINATION: GENERAL: Appears well, healthy, well-nourished, no acute distress. HEAD: Normocephalic, atraumatic. EYES: PERRL, conjunctiva normal, all extraocular movements intact, sclera nonicteric ENT: Moist mucous membranes. NECK: Supple, no noticeable swelling, redness, rash. Normal range of motion. LUNGS: Equal breath sounds bilaterally and clear to auscultation. No wheezes rales or rhonchi. CARDIOVASCULAR: S1-S2, regular rate, regular rhythm. Radial pulses 2+, normal. ABDOMEN: Normoactive bowel sounds. Soft, nontender, no guarding, no rebound tenderness, and no masses palpated. EXTREMITIES: Normal strength and range of motion, no pitting or edema. No cyanosis. NEUROLOGICAL: Moves all extremities upon command. Strength 5/5 in all extremities. PSYCH: Normal mood, normal affect. SKIN: Warm, dry. Laceration noted to distal end of left second finger. Normal skin turgor. Course - Re-evaluation Re-evalutation: Differential diagnosis includes but is not limited to: Laceration, foreign body, arterial injury, nerve injury, fracture or tendon injury. Patient was able to flex and extend her digits against resistance distal to the laceration with no apparent tendon injury, CMS intact distal to the injury with no evidence of ne rve damage, bleeding was well-controlled in the emergency department. X-ray was not obtained, as the patient has a superficial laceration. Wound was repaired. See procedure note. Follow-up precautions were given. Verbal discharge instructions were given to the patient. They verbalized understanding. They are stable for discharge. - Vital Signs Vital signs: Temp Pulse Resp BP Pulse Ox 98.1 F 67 16 113/68 100 02/25/19 13:20 02/25/19 13:20 02/25/19 13:20 02/25/19 13:20 02/25/19 13:20 Discharge - Discharge Clinical Impression: Finger laceration Qualifiers: Encounter type: initial encounter Finger: index finger Damage to nail status: with damage Foreign body presence: without foreign body Laterality: left Qualified Code(s): S61.311A - Laceration without foreign body of left index finger with damage to nail, initial encounter Condition: Stable Disposition: HOME, SELF-CARE Instructions: Antibiotic Ointment Protection ([facility]), Laceration Care ([facility]), Prophylactic Antibiotic ([facility]), Soap Cleansing ([facility]), Tetanus Immunization Given ([facility]) Additional Instructions: Please return to your primary doctor, the ED, or an urgent care in 7 days for suture removal. You are being started on antibiotics to prevent infection. Please take all your antibiotics as prescribed. Return immediately if you develop spreading redness around the wound, pus from the wound, worsening pain, or a fever of >100.4. Keep the area clean and dry. Wash gently with soap and water twice daily and cover with antibiotic ointment. Prescriptions: Cephalexin Monohydrate [Keflex 500 mg Capsule] 500 mg PO Q6H 5 Days #20 capsule Forms: Return to Work Referrals: DARRICK COLLINS DO [NO LOCAL MD] - Follow up in 1 week
== END 2019-02-25 16:35 | disposition home or self-care (01) ==
LOC: ER 13:11
DX: S61.211A Laceration without foreign body of left index finger without damage to nail, initial encounter (principal); W26.0XXA Contact with knife, initial encounter; Y93.89 Activity, other specified; Y92.009 Unspecified place in unspecified non-institutional (private) residence as the place of occurrence of the external cause; R20.0 Anesthesia of skin; J45.909 Unspecified asthma, uncomplicated; Z87.892 Personal history of anaphylaxis; Z91.010 Allergy to peanuts
CPT/HCPCS: 99282; 90471; 90715; J3490

== ENCOUNTER → 2020-01-18 | Outpatient (CLI) | payer MEDICAID ==
--- NOTE | 2020-01-18 11:35 | RADIOLOGY REPORT (SQ) ---
EXAM DESCRIPTION: CHEST PA/LATERAL IMAGES COMPLETED DATE/TIME: 01/18/2020 11:08 am REASON FOR STUDY: OTHER CHEST PAIN COMPARISON: None. EXAM PARAMETERS: NUMBER OF VIEWS: Two views. TECHNIQUE: PA and lateral views of the chest were obtained. RADIATION DOSE: NA. LIMITATIONS: None. FINDINGS: LUNGS AND PLEURA: No consolidation, pleural effusion or pneumothorax. MEDIASTINUM AND HILAR STRUCTURES: No mediastinal or hilar contour abnormality. HEART AND VASCULAR STRUCTURES: The cardiac silhouette and pulmonary vasculature are within normal wolfe its. BONES: No acute findings. HARDWARE: None in the chest. OTHER: No other finding. IMPRESSION: No acute cardiopulmonary process. TECHNICAL DOCUMENTATION: JOB ID: [id number] 2010 [employer]- All Rights Reserved Reading location - IP/workstation name: [email or web address]
--- NOTE | 2020-01-18 11:36 | RADIOLOGY REPORT (SQ) ---
EXAM DESCRIPTION: HIP RIGHT AP/LATERAL IMAGES COMPLETED DATE/TIME: 01/18/2020 11:08 am REASON FOR STUDY: OTHER CHEST PAIN M79.89 OTHER SPECIFIED SOFT TISSUE DISORDERS R21 RASH AND OTHER NONSPECIFIC SKIN ERUPTION R07.89 OTHER CHEST PAIN COMPARISON: None. NUMBER OF VIEWS: Two views. TECHNIQUE: AP pelvis and additional frog-leg view of the right hip. LIMITATIONS: None. FINDINGS: MINERALIZATION: Normal. RIGHT HIP: No fracture or dislocation. No irregularity of the articular surface of the humeral head. LEFT HIP: No fracture or dislocation. PUBIS AND ISCHIUM: The ilioischial and iliopectineal lines are intact. There is no diastasis of the pubic symphysis. PELVIS: No fracture. SACRUM: Intact. LOWER LUMBAR SPINE: No abnormality. SOFT TISSUES: No findings. OTHER: No other finding. IMPRESSION: No acute osseous abnormality of the pelvis and right hip. TECHNICAL DOCUMENTATION: JOB ID: [id number] 2010 [employer]- All Rights Reserved Reading location - IP/workstation name: [email or web address]
[2020-01-18 12:17] LABS: APPEARANCE,URINE SLIGHTLY-CLOUDY; BILIRUBIN,URINE NEGATIVE (NEGATIVE); COLOR,URINE AMBER; GLUCOSE, URINE NEGATIVE (NEGATIVE); KETONES,URINE NEGATIVE (NEGATIVE); LEUKOCYTE ESTERASE,URINE NEGATIVE (NEGATIVE); NITRITE,URINE NEGATIVE (NEGATIVE); PROTEIN,URINE 30 mg/dL (NEGATIVE); UROBILINOGEN,URINE NEGATIVE mg/dL (<2.0)
[2020-01-18 12:28] LABS: C-REACTIVE PROTEIN 19.2 mg/L (<10.0)
[2020-01-19 14:48] LABS: ANTINUCLEAR ANTIBODIES Negative (Negative)
== END ==
LOC: OD 10:47
PROVIDERS: ATTEND Nurse Practitioner Family
DX: M79.89 Other specified soft tissue disorders (principal); R21 Rash and other nonspecific skin eruption; R07.89 Other chest pain; M25.551 Pain in right hip; M60.9 Myositis, unspecified
CPT/HCPCS: 36415; 71046; 81001; 82550; 83615; 85652; 86038; 86140; 86235